=== PATIENT | male | born 1940 | race Caucasian/White ===

== ENCOUNTER 2017-03-19 12:01 | Inpatient (IN) | payer MEDICARE, BC ==
[2017-03-19] MEDS ORDERED: methylPREDNISolone Sodium Succinate 125 MG/2 ML SDV IVPUSH SCH (13:30)
[2017-03-19] MEDS: Piperacillin/Tazobactam/Dext 50 ML IV SCH ×2 (14:00→20:38)
[2017-03-19] MEDS ORDERED: Prochlorperazine 5 MG Tab PO PRN (16:46)
[2017-03-19] MEDS ORDERED: Nitroglycerin 0.4 MG Tab.SL SL PRN (16:46)
[2017-03-19] MEDS ORDERED: Codeine/guaiFENesin 100mg-10 MG/5 ML Syrup 10 ML Cup PO PRN (16:46)
[2017-03-19] MEDS: Albuterol/Ipratropium 3.0-0.5 MG/3 ML Neb Soln NEB SCH ×2 (17:22→22:12)
[2017-03-19] MEDS: Clopidogrel 75 MG Tab PO SCH (17:22)
[2017-03-19] MEDS: Tamsulosin 0.4 MG Cap.ER PO SCH (17:41)
[2017-03-19] MEDS: Budesonide 0.5 MG/2 ML Neb Susp INH SCH (20:38)
[2017-03-19] MEDS: Hydroxychloroquine 200 MG Tab PO SCH (20:38)
[2017-03-19] MEDS: Carboxymethylcellulose Sodium 0.5% Ophth Soln 15 ML Bottle EYEBOTH SCH (20:38)
[2017-03-20] MEDS: Piperacillin/Tazobactam/Dext 50 ML IV SCH ×4 (01:46→19:49)
[2017-03-20] MEDS: Albuterol/Ipratropium 3.0-0.5 MG/3 ML Neb Soln NEB SCH ×4 (06:02→22:56)
[2017-03-20] MEDS: Hydrochlorothiazide 25 MG Tab PO SCH (08:11)
[2017-03-20] MEDS: Multivitamins with Minerals/Iron/Folic Acid/Lycopene Tab PO SCH (08:11)
[2017-03-20] MEDS: Losartan 50 MG Tab PO SCH (08:11)
[2017-03-20] MEDS: predniSONE 10 MG Tab PO SCH (08:12)
[2017-03-20] MEDS: Aspirin 81 MG Tab.EC PO SCH (08:12)
[2017-03-20] MEDS: Metoprolol Succinate 25 MG Tab.ER PO SCH (08:12)
[2017-03-20] MEDS: Carboxymethylcellulose Sodium 0.5% Ophth Soln 15 ML Bottle EYEBOTH SCH ×2 (08:12→20:06)
[2017-03-20] MEDS: Hydroxychloroquine 200 MG Tab PO SCH ×3 (08:12→18:10)
[2017-03-20] MEDS: Budesonide 0.5 MG/2 ML Neb Susp INH SCH ×2 (08:22→19:59)
[2017-03-20] MEDS ORDERED: Codeine/guaiFENesin 100mg-10 MG/5 ML Syrup 10 ML Cup PO PRN (09:09)
[2017-03-20] MEDS: guaiFENesin 600 MG Tab.ER PO SCH ×2 (10:05→20:06)
[2017-03-20] MEDS: Sodium Chloride 0.9% 5 ML Syringe FLUSH PRN ×2 (13:32→16:14)
[2017-03-20] MEDS: [UNRECOGNIZED DRUG - OTHER] PO SCH (13:56)
[2017-03-20] MEDS: Clopidogrel 75 MG Tab PO SCH (18:10)
[2017-03-20] MEDS: Tamsulosin 0.4 MG Cap.ER PO SCH (18:10)
[2017-03-21] MEDS: Piperacillin/Tazobactam/Dext 50 ML IV SCH ×4 (02:23→19:54)
[2017-03-21] MEDS: Albuterol/Ipratropium 3.0-0.5 MG/3 ML Neb Soln NEB SCH ×4 (05:59→22:34)
[2017-03-21] MEDS: Multivitamins with Minerals/Iron/Folic Acid/Lycopene Tab PO SCH (08:21)
[2017-03-21] MEDS: Losartan 50 MG Tab PO SCH (08:21)
[2017-03-21] MEDS: predniSONE 10 MG Tab PO SCH (08:22)
[2017-03-21] MEDS: Hydrochlorothiazide 25 MG Tab PO SCH (08:22)
[2017-03-21] MEDS: Aspirin 81 MG Tab.EC PO SCH (08:22)
[2017-03-21] MEDS: Metoprolol Succinate 25 MG Tab.ER PO SCH (08:22)
[2017-03-21] MEDS: Hydroxychloroquine 200 MG Tab PO SCH ×2 (08:22→18:05)
[2017-03-21] MEDS: Carboxymethylcellulose Sodium 0.5% Ophth Soln 15 ML Bottle EYEBOTH SCH ×2 (08:23→20:10)
[2017-03-21] MEDS: guaiFENesin 600 MG Tab.ER PO SCH ×2 (08:23→20:10)
[2017-03-21] MEDS: Budesonide 0.5 MG/2 ML Neb Susp INH SCH ×2 (08:53→20:00)
--- NOTE | 2017-03-21 11:09 | PN ---
03/21/2017 PATIENT NAME: SANDRA LANCASTER CHIEF COMPLAINT: More of a loose productive cough today. He was given some Mucinex yesterday, however, denies any shortness of breath. No fevers. Vital signs have been stable. BRIEF HISTORY: This 76-year-old gentleman was admitted for a community-acquired pneumonia, pseudomonal grew on the sputum culture. He is a patient of Dr. Hinton, oncologist, and he did see him on approximately 03/14/2017, and did obtain a sputum culture, due to the fact that the patient was having a cough for approximately three weeks prior. He did notify [facility] [place] nurse practitioner, on the results, and he was admitted for IV antibiotics. He has been on Zosyn and doing quite well. The patient does have CLL with elevated WBC which is chronic for him. He does have COPD on Pulmicort inhalers and DuoNeb, doing quite well with that. PHYSICAL EXAMINATION: VITAL SIGNS: Temperature 97, heart rate 68 and regular, blood pressure 133/67, O2 sats are 96% on room air. He is not on home oxygen. 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 The patient does not use any accessory muscles for breathing. Good capillary refill. CARDIOVASCULAR: Regular rate and rhythm. ABDOMEN: Bowel tones are good. LABORATORY DATA: I have viewed the sputum culture results that show pseudomonal with sensitivity to ciprofloxacin along with broad-spectrum Zosyn. He is continued with Zosyn right now. ASSESSMENT AND PLAN: 1. Community-acquired pneumonia, pseudomonal, continue with IV Zosyn for at least 24 more hours. Most likely can be discharged tomorrow on oral ciprofloxacin, continue with his DuoNeb, oxygen as needed, continue with Mucinex, fluids to stay well hydrated, and incentive spirometer. 2. Chronic obstructive pulmonary disease, seems well controlled. He did have a mild exacerbation on admission. Mucinex ordered, he is on Pulmicort inhaler, I did discontinue his systemic steroids, also on DuoNeb p.r.n. 3. Chronic diseases, chronic lymphocytic leukemia (CLL), he is on Leukeran 6 mg daily. Monitor white count. He is being followed closely by net application support specialist/oncologist. 4. Hypertension. He is on Hyzaar, well controlled. He is also on Toprol. 5. Coronary artery disease. He is on dual antiplatelet therapy of aspirin and Plavix, along with Toprol. 6. Hyperlipidemia, he is not on a statin therapy. 7. Rheumatoid arthritis. He is on prednisone and Plaquenil, 10 mg daily of prednisone. He does have increase in his arthritic symptoms, due to his mild current illness, it seems like this is tolerable mainly in his shoulders and small joints. No edema noticed in his hands. OVERALL PLAN: Continue IV Zosyn, potential for discharge tomorrow, we will consider respiratory fluoroquinolones on discharge. /[id number]/MODL
--- NOTE | 2017-03-21 11:44 | PN ---
03/20/2017 PATIENT NAME: SANDRA LANCASTER CHIEF COMPLAINT: Overall feels better, still has ongoing cough. BRIEF HISTORY: This is a 76-year-old gentleman, who does have a history of CLL, who was admitted by Olga Lopez yesterday after he had received a notice by his oncologist regarding a pseudomonal sputum. He had been seen by Dr. Hinton on 03/14. At that time, he had a negative chest x-ray. At that time, he was also started on doxycycline due to a productive cough he had had about 3 weeks prior to this, however, the patient's sputum culture did come back with pseudomonal, so it was suggested that he receive IV antibiotics. He was admitted yesterday. MICROBIOLOGY: The patient's sputum culture does show moderate gram-positive cocci in pairs and chains with a few gram-negative bacillus, sensitive to respiratory fluoroquinolones. continue with Zosyn. IMAGING: Chest x-ray was negative on 03/14, do not have the image nor the report from admission x-ray. PHYSICAL EXAMINATION: VITAL SIGNS: Temperature, afebrile 98.1, blood pressure 148/74, heart rate 70, O2 saturation 96%, this is on room air. GENERAL: The patient is lucid, calm, no respiratory distress. CV: Regular rate and rhythm. No murmur. LUNGS: Does have some rhonchus in right lower lobe, mildly adventitious to the left upper lobe. ABDOMEN: Bowel sounds are normoactive, nontender. EXTREMITIES: Good radial pulses. The patient has no edema. LABORATORY DATA: CBC dated 03/19, 125,000, RBCs 2.94, hemoglobin 10.1 with hematocrit of 30.0, RDW approximately 15, differential neutrophil percent 10%. Glucose 92, sodium 135, potassium 4.2, BUN 23, creatinine 1.18 with a BUN and creatinine ratio of approximately 20:1. Calcium is normal at 9.1. IMPRESSION AND PLAN: 1. Pneumonia, culture demonstrate pseudomonal. We will continue on IV Zosyn. Will likely be discharged on respiratory fluoroquinolone. He is well hydrated, oxygenating well, incentive spirometer encouraged. 2. Chronic obstructive pulmonary disease, mild exacerbation. Continue with Pulmicort inhaler and DuoNebs. 3. He is on 10 mg of prednisone due to his rheumatoid arthritis. He had received Solu-Medrol x1 yesterday. I will not continue with that. OTHER CHRONIC PROBLEMS: 1. Hypertension, controlled on Hyzaar. 2. Coronary artery disease, on Toprol, Plavix, and aspirin. 3. Hyperlipidemia. 4. Rheumatoid arthritis, he is on Plaquenil along with prednisone. 5. Chronic lymphocytic leukemia (CLL) diagnosed in 2013. Continue treatment with chlorambucil 6 mg p.o. daily. Monitor weekly CBCs. He is being followed by his oncologist every month. OVERALL PLAN: Continue coverage with broad-spectrum IV Zosyn for pseudomonal, most likely could be discharged on a p.o. ciprofloxacin at some point with the patient's CLL, he could have a clinical deterioration quite rapidly, so he is requiring IV treatment for this and ongoing monitoring, and inpatient ongoing hospital stay. /[id number]/MODL MTDD
[2017-03-21] MEDS: Sodium Chloride 0.9% 5 ML Syringe FLUSH PRN (13:06)
[2017-03-21] MEDS: [UNRECOGNIZED DRUG - OTHER] PO SCH (14:38)
[2017-03-21] MEDS: Tamsulosin 0.4 MG Cap.ER PO SCH (18:04)
[2017-03-21] MEDS: Clopidogrel 75 MG Tab PO SCH (18:05)
[2017-03-21] MEDS: Loperamide 2 MG Cap PO PRN (18:05)
[2017-03-22] MEDS: Loperamide 2 MG Cap PO PRN ×4 (01:56→22:18)
[2017-03-22] MEDS: Piperacillin/Tazobactam/Dext 50 ML IV SCH ×4 (01:56→20:00)
[2017-03-22] MEDS: Albuterol/Ipratropium 3.0-0.5 MG/3 ML Neb Soln NEB SCH ×4 (05:51→22:11)
[2017-03-22] MEDS: Multivitamins with Minerals/Iron/Folic Acid/Lycopene Tab PO SCH (07:49)
[2017-03-22] MEDS: Hydroxychloroquine 200 MG Tab PO SCH ×2 (07:51→17:26)
[2017-03-22] MEDS: Hydrochlorothiazide 25 MG Tab PO SCH (07:51)
[2017-03-22] MEDS: Losartan 50 MG Tab PO SCH (07:52)
[2017-03-22] MEDS: predniSONE 10 MG Tab PO SCH (07:53)
[2017-03-22] MEDS: Metoprolol Succinate 25 MG Tab.ER PO SCH (07:53)
[2017-03-22] MEDS: Carboxymethylcellulose Sodium 0.5% Ophth Soln 15 ML Bottle EYEBOTH SCH ×2 (08:41→20:00)
[2017-03-22] MEDS: Budesonide 0.5 MG/2 ML Neb Susp INH SCH ×2 (08:41→20:02)
[2017-03-22] MEDS: Aspirin 81 MG Tab.EC PO SCH (08:42)
[2017-03-22] MEDS: guaiFENesin 600 MG Tab.ER PO SCH ×2 (08:42→20:00)
--- NOTE | 2017-03-22 12:11 | PN ---
03/22/2017 PATIENT NAME: SANDRA LANCASTER BRIEF HISTORY: This 76-year-old gentleman was admitted for community-acquired pneumonia, pseudomonal growth on a sputum culture. He is a patient Dr. Hinton oncologist/job placement officer, had seen him for about a three-week cough, it was routine appointment, however, the patient had been having a cough for several weeks, had put him on doxycycline, however, he had treatment failure with this. 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 He will have to remain here for ongoing IV coverage of hypercellular/tazobactam. PHYSICAL EXAMINATION: VITAL SIGNS: Temperature 97.7, blood pressure 120/64, heart rate 78, O2 sats 98% on room air, respiratory rate 20. GENERAL: The patient is alert and oriented. LUNGS: He does have some rhonchus in his right lower lobe, seems to be improving. Does have an ongoing cough. He is oxygenating well. He has normal pulmonary excursion. CARDIOVASCULAR: Regular rate and rhythm. No murmur. GI: Good bowel tones. Ongoing diarrhea, C diff is negative on labs. LABS: White count of 127,000, which is expected due to his CLL. Sodium 133, potassium 3.5, creatinine is 1.42 with estimated creatinine clearance drug dosing of 50. ASSESSMENT AND PLAN: 1. Community-acquired pneumonia, pseudomonal due to type 1 hypersensitivity reactions to many agents. He will have to continue with IV Zosyn, minimal of 5-7 days with this. Continue with Mucinex, well hydration with fluids, incentive spirometer, respiratory isolation with masks. 2. Chronic obstructive pulmonary disease, seems well controlled. Mucinex can continue for pulmonary secretions. We will continue with Brittaney Gonzalez. 3. Chronic lymphocytic leukemia. Continue with Leukeran 6 mg daily. Monitor white count. 4. Hypertension, well controlled on Hyzaar. 5. Coronary artery disease, on dual antiplatelet therapy of aspirin and Plavix. 6. Hyperlipidemia. He is on statin therapy. 7. Rheumatoid arthritis. Continue with Plaquenil and prednisone. OVERALL PLAN: Continue with IV Zosyn q.6 hours. We will continue to monitor the patient for any ongoing sequela. /[id number]/MODL
[2017-03-22] MEDS: B.Bifidum/B.Longum/L.Acidophilus/L.Rhamnosus (Probiotic) Cap PO SCH ×2 (12:43→17:26)
[2017-03-22] MEDS: [UNRECOGNIZED DRUG - OTHER] PO SCH (12:43)
[2017-03-22] MEDS: Sodium Chloride 0.9% 100 ML IV SCH (14:27)
[2017-03-22] MEDS: Tamsulosin 0.4 MG Cap.ER PO SCH (17:26)
[2017-03-22] MEDS: Clopidogrel 75 MG Tab PO SCH (17:26)
[2017-03-23] MEDS: Piperacillin/Tazobactam/Dext 50 ML IV SCH ×4 (01:57→20:17)
[2017-03-23] MEDS: Albuterol/Ipratropium 3.0-0.5 MG/3 ML Neb Soln NEB SCH ×4 (05:58→22:34)
[2017-03-23] MEDS: Hydrochlorothiazide 25 MG Tab PO SCH (07:41)
[2017-03-23] MEDS: Hydroxychloroquine 200 MG Tab PO SCH ×2 (07:41→17:36)
[2017-03-23] MEDS: Multivitamins with Minerals/Iron/Folic Acid/Lycopene Tab PO SCH (07:41)
[2017-03-23] MEDS: Losartan 50 MG Tab PO SCH (07:42)
[2017-03-23] MEDS: predniSONE 10 MG Tab PO SCH (07:42)
[2017-03-23] MEDS: Metoprolol Succinate 25 MG Tab.ER PO SCH (07:42)
--- NOTE | 2017-03-23 07:54 | DISCH ---
ADDENDUM patient was discharged March 24, 2017 FINAL DIAGNOSES: Pneumonia, community-acquired, pseudomonal etiology, much improved clinically. OTHER FINAL DIAGNOSES: Chronic medical conditions; chronic obstructive pulmonary disease, mild exacerbations, much improved; chronic lymphocytic leukemia (CLL), continue with Leukeran 6 mg daily; hypertension, well controlled; coronary artery disease, on dual antiplatelet therapy; hyperlipidemia, is on statin therapy; rheumatoid arthritis with mild exacerbation on prednisone and Plaquenil. BRIEF HISTORY: This very pleasant 76-year-old gentleman was admitted for community-acquired pneumonia. He had an appoint with his oncologist for his CLL. At that time, he had been having a cough for 3 weeks. Sputum culture was obtained. He returned 2 to 3 days later with a pseudomonal bacterial organism and he was subsequently admitted to the hospital for IV broad-spectrum antibiotics, definitive therapy based on sensitivity reports. HOSPITAL COURSE: The patient did very well throughout the hospital course. He received IV Zosyn throughout his course here. He did have some ongoing concomitant diarrhea, which was treated with Imodium. He never became febrile, qSOFA score was zero. Blood pressure normal, normal temperature. O2 sat 98%. He was well hydrated. He did have a mild COPD exacerbation, which did not require any supplemental oxygen. He continued on his DuoNeb and all his breathing medications. He was treated with probiotics for diarrhea. C. difficile was negative LABS: He did have a white count of 127,000.8 on discharge, however, due to his CLL, this was expected. Sodium 133, BUN 22, creatinine 1.42, total protein 5.9. Microbiology Report: He did have a negative C. difficile. He never became hemodynamically unstable. I did treat him with some Mucinex. He was well hydrated, continued on his prednisone and his Plaquenil. PHYSICAL EXAMINATION: On discharge: GENERAL: The patient is alert and oriented. LUNGS: Had some mild rhonchus in his right lower base. No decrease in excursion. CV: Regular rate and rhythm. He had no edema. GI: He did have some ongoing diarrhea likely due to antibiotics. C. difficile was negative. DISPOSITION: The patient strongly desired to be released from the hospital. I recommended 7-10 day course since he has significant allergy Type I hypersensitivity allergies requiring IV antibiotics. The patient was educated regarding this however he desired to go home. CONSULTATION. I consulted with his oncologist Dr. Lara's, he recommended patient stay at minimal of 5 days for IV antibiotics MEDICATION ADJUSTMENTS: 1. Probiotics, the patient's choice. 2. Imodium as directed for ongoing diarrhea. DISPOSITION: The patient will be discharged home. He will follow up next week. He is to monitor for any dizziness, diaphoresis, or any fever, worsening cough, or any weakness, or increase in shortness of breath. He uses incentive spirometer as directed. MEDICAL DECISION MAKIN minutes was spent on this discharge planning and process and pharmacy prescription consultation. /[id number]/MODL ADDENDUM patient was discharged March 24, 2017 [place]
[2017-03-23] MEDS: Aspirin 81 MG Tab.EC PO SCH (08:24)
[2017-03-23] MEDS: guaiFENesin 600 MG Tab.ER PO SCH ×2 (08:24→20:17)
[2017-03-23] MEDS: Budesonide 0.5 MG/2 ML Neb Susp INH SCH ×2 (08:25→20:17)
[2017-03-23] MEDS: Carboxymethylcellulose Sodium 0.5% Ophth Soln 15 ML Bottle EYEBOTH SCH ×2 (08:27→20:18)
--- NOTE | 2017-03-23 09:39 | PN ---
03/23/2017 PATIENT NAME: SANDRA LANCASTER CHIEF COMPLAINT: Feels better, less of a cough, much less of any mucous production, no wheezing, had a good night. HISTORY: This 76-year-old gentleman was admitted for a pseudomonal pneumonia, which grew out on a sputum culture, sensitive to Zosyn and ciprofloxacin, however, patient has type 1 hypersensitivity allergies to respiratory fluoroquinolones among others. He was recently seen by an poker manager and he was removed off aspirin allergies, also he can take first generation cephalosporin, however, he has been willing to stay here for IV Zosyn. He has refused home therapy fusion. He does have CLL and is closely followed by parish worker/oncologist. The patient has done well since hospitalization. PHYSICAL EXAMINATION: VITAL SIGNS: Blood pressure 142/82; heart rate 86 and regular; temperature 98; O2 sats of 93%, this is on room air. GENERAL: The patient is alert and oriented, he is calm. He was doing a respiratory breathing DuoNeb on rounds. LUNGS: Very much improved, much less rhonchus, oxygenating well. Good vascular excursion. CARDIOVASCULAR: Regular rate and rhythm. LABS: On 03/22, white count 127,000, which is expected for CLL; hemoglobin 10.5; hematocrit 31.3 with a slightly elevated RDW indicating anisocytosis. Sodium 133, BUN 22, creatinine 1.42. Liver tests are normal. ASSESSMENT AND PLAN: 1. Pseudomonal community-acquired pneumonia. The patient will require to IV Zosyn for at least 24-48 more hours. Likely, he could be discharged tomorrow afternoon. We will continue with Mucinex. He seems well hydrated. 2. Chronic obstructive pulmonary disease with mild exacerbation, this seems to have resolved, however, we will continue on his Pulmicort and DuoNebs. He is oxygenating well. He is well hydrated. 3. Chronic lymphocytic leukemia. He is getting Leukeran 6 mg daily. He will be monitored closely with his oncologist. There are treatment plans for him if his white count drops below 50,000. 4. Hypertension, well controlled on high Hyzaar. 5. Hyperlipidemia. 6. Rheumatoid arthritis, which seems to have improved. He is on long-term steroids along with Plaquenil. OVERALL PLAN: Continue with IV Zosyn. He is doing well. Continue to monitor for any ongoing problems with him including fever and dizziness and low blood pressure. Likely, he can be discharged tomorrow afternoon after his second dose of IV Zosyn. We will see how he is clinically at that time. /[id number]/MODL MTDD
[2017-03-23] MEDS: B.Bifidum/B.Longum/L.Acidophilus/L.Rhamnosus (Probiotic) Cap PO SCH ×2 (11:28→17:36)
[2017-03-23] MEDS: [UNRECOGNIZED DRUG - OTHER] PO SCH (13:24)
[2017-03-23] MEDS: Sodium Chloride 0.9% 100 ML IV SCH (13:57)
[2017-03-23] MEDS: Tamsulosin 0.4 MG Cap.ER PO SCH (17:36)
[2017-03-23] MEDS: Clopidogrel 75 MG Tab PO SCH (17:36)
[2017-03-23] MEDS: Loperamide 2 MG Cap PO PRN (20:17)
[2017-03-24] MEDS: Piperacillin/Tazobactam/Dext 50 ML IV SCH ×3 (02:10→13:18)
[2017-03-24] MEDS: Albuterol/Ipratropium 3.0-0.5 MG/3 ML Neb Soln NEB SCH ×2 (05:40→11:37)
[2017-03-24 06:29] VITALS: BP 141/72
[2017-03-24] MEDS: Hydrochlorothiazide 25 MG Tab PO SCH (08:46)
[2017-03-24] MEDS: Losartan 50 MG Tab PO SCH (08:46)
[2017-03-24] MEDS: Multivitamins with Minerals/Iron/Folic Acid/Lycopene Tab PO SCH (08:46)
[2017-03-24] MEDS: Hydroxychloroquine 200 MG Tab PO SCH (08:47)
[2017-03-24] MEDS: predniSONE 10 MG Tab PO SCH (08:47)
[2017-03-24] MEDS: Aspirin 81 MG Tab.EC PO SCH (08:48)
[2017-03-24] MEDS: Metoprolol Succinate 25 MG Tab.ER PO SCH (08:48)
[2017-03-24] MEDS: guaiFENesin 600 MG Tab.ER PO SCH (08:49)
[2017-03-24] MEDS: Carboxymethylcellulose Sodium 0.5% Ophth Soln 15 ML Bottle EYEBOTH SCH (08:54)
[2017-03-24] MEDS: Budesonide 0.5 MG/2 ML Neb Susp INH SCH (08:55)
[2017-03-24] MEDS: B.Bifidum/B.Longum/L.Acidophilus/L.Rhamnosus (Probiotic) Cap PO SCH (12:01)
[2017-03-24] MEDS: [UNRECOGNIZED DRUG - OTHER] PO SCH (12:02)
[2017-03-24] MEDS: Sodium Chloride 0.9% 100 ML IV SCH (13:20)
== END 2017-03-24 14:15 | disposition home or self-care (01) | DRG 178 ==
LOC: KA.MS 12:01
PROVIDERS: ADMIT Nurse Practitioner Family; ATTEND Nurse Practitioner Family
DX: J15.1 Pneumonia due to Pseudomonas (principal); J44.1 Chronic obstructive pulmonary disease with (acute) exacerbation; C91.10 Chronic lymphocytic leukemia of B-cell type not having achieved remission; I10 Essential (primary) hypertension; I25.10 Atherosclerotic heart disease of native coronary artery without angina pectoris; E78.5 Hyperlipidemia, unspecified; M06.9 Rheumatoid arthritis, unspecified; Z79.899 Other long term (current) drug therapy; Z88.8 Allergy status to other drugs, medicaments and biological substances; Z95.5 Presence of coronary angioplasty implant and graft; Z87.891 Personal history of nicotine dependence
CPT/HCPCS: 36415; 80053; 85025; 87324; A9270-GY; J2543; J2930; J7030; J7050

== ENCOUNTER 2017-09-11 09:45 | Day surgery (SDC) | payer MEDICARE, BC ==
[~2017-09-11 09:45] MED LIST: Gatifloxacin 0.5% Ophth Soln 2.5 ML Bot EYERT SCH; Lactated Ringers 1,000 ML IV SCH; Sodium Chloride 0.9% 5 ML Syringe FLUSH PRN
[2017-09-11] MEDS: Cyclopentolate 1% Opth Soln 2 ML Bottle EYERT SCH ×3 (10:19→10:49)
[2017-09-11] MEDS: Phenylephrine 10% Ophth Soln 5 ML Bot EYERT SCH ×3 (10:29→11:03)
[2017-09-11] MEDS ORDERED: Water For Irrigation,Sterile 1,500 ML Container IRR ONE (11:32)
[2017-09-11] MEDS ORDERED: Balanced Salt Solution Ophth Irrig 15 ML Bottle EYERT ONE ×2 (11:32)
[2017-09-11] MEDS ORDERED: EPINEPHrine 1 MG/ML SDV ONE (11:33)
[2017-09-11] MEDS ORDERED: Balanced Salt Solution Plus Ophth Irrig 500 ML Bottle IOCULAR ONE (11:33)
[2017-09-11] MEDS ORDERED: Carbachol 0.01% Intraocular 1.5 ML Vial EYERT ONE (11:33)
[2017-09-11] MEDS ORDERED: Dexamethasone/Neomycin/Polymyxin B Ophth Oint 3.5 GM Tube EYERT ONE (11:34)
[2017-09-11] MEDS ORDERED: Lidocaine 2% with EPINEPHrine 1:100,000 20 ML MDV INJECT ONE (11:34)
[2017-09-11] MEDS ORDERED: Tetracaine HCl/PF 0.5% 4 ML Bottle EYEBOTH ONE (11:35)
[2017-09-11] MEDS ORDERED: Hyaluronate Sodium 1% 0.85 ML Syringe IOCULAR ONE (11:35)
[2017-09-11] MEDS ORDERED: Lidocaine 1% 10 ML MDV INJECT ONE (11:35)
[2017-09-11 12:02] VITALS: BP 197/61
--- NOTE | 2017-09-12 08:32 | OR ---
DATE OF SURGERY: 09/11/2017 SURGEON: Brian Ascencio MD PREOPERATIVE DIAGNOSIS: Cataract, right eye. POSTOPERATIVE DIAGNOSIS: Cataract, right eye. OPERATION PERFORMED: Phacoemulsification with posterior chamber lens insertion, right eye. HISTORY: Mr. Burnett notes that he is having more and more difficulty when he is out and about with constant glare of the right eye. 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 The vision is 20/50-2 for the right eye. FINDINGS: The patient was taken to the operating room where appropriate anesthesia, sedation and monitoring were provided. A retrobulbar block was given on the right side. The eye was massaged and was found to be appropriately soft. The eye and eyelids were then prepped and draped in the usual sterile manner. A lid speculum was placed. A micro sharp blade was used to enter the anterior chamber inside the limbus superior-temporally. Xylocaine was irrigated into the eye at this site. Healon was irrigated into the eye through this site. Then using a 2.85 mm corneal blade an entry was made into the anterior chamber just inside the limbus temporally. Healon was again irrigated into the eye. Then using a cystitome, the anterior capsulorrhexis was created. The lens nucleus was hydrodissected using a 27 gauge cannula and balanced salt solution. The phacoemulsification unit was introduced through the temporal site and the Stephen spatula through the superior temporal site. In so doing, the lens nucleus was phacoemulsified. The cortical fragments of the lens were removed using the irrigation aspiration unit. The posterior capsule was polished. Healon was irrigated into the eye. The posterior chamber lens was inserted and rotated into position inside the capsular bag. The Healon was irrigated out of the eye. Miostat was irrigated into the eye and the pupil rounded nicely. Two interrupted 10-0 Nylon sutures were placed through the temporal corneal incision site. Balanced salt solution was irrigated into the eye. The wound was tested and found to be tight. Maxitrol ointment was placed into the patient's right eye. The eyelids were closed and an eye patch and lomas shield were placed. The patient left the operating room in good condition. /[id number]/MODL
== END 2017-09-11 12:37 | disposition home or self-care (01) ==
LOC: KA.SDS 09:45
PROVIDERS: ATTEND Ophthalmology
DX: H25.811 Combined forms of age-related cataract, right eye (principal); I12.9 Hypertensive chronic kidney disease with stage 1 through stage 4 chronic kidney disease, or unspecified chronic kidney disease; N18.3 Chronic kidney disease, stage 3 (moderate); I25.10 Atherosclerotic heart disease of native coronary artery without angina pectoris; D80.1 Nonfamilial hypogammaglobulinemia; N40.1 Benign prostatic hyperplasia with lower urinary tract symptoms; E78.5 Hyperlipidemia, unspecified; J44.9 Chronic obstructive pulmonary disease, unspecified; C91.10 Chronic lymphocytic leukemia of B-cell type not having achieved remission; Z88.1 Allergy status to other antibiotic agents; Z88.8 Allergy status to other drugs, medicaments and biological substances; Z79.82 Long term (current) use of aspirin; Z79.899 Other long term (current) drug therapy
CPT/HCPCS: 36415; 66984; 84132; A9270; C1780; J0171; J7120; 00142

== ENCOUNTER 2017-11-20 08:55 | Day surgery (SDC) | payer MEDICARE, BC ==
[~2017-11-20 08:55] MED LIST changes: +Cyclopentolate 1% Opth Soln 2 ML Bottle EYELF SCH; -Gatifloxacin 0.5% Ophth Soln 2.5 ML Bot EYERT SCH; +Phenylephrine 10% Ophth Soln 5 ML Bot EYELF SCH; +Tobramycin 0.3% Ophth Drops 5 ML Bottle EYELF SCH
[2017-11-20] MEDS ORDERED: Tobramycin 0.3% Ophth Drops 5 ML Bottle EYELF SCH ×2 (09:00→09:45)
[2017-11-20] MEDS: Phenylephrine 10% Ophth Soln 5 ML Bot EYELF SCH ×3 (09:12→09:43)
[2017-11-20] MEDS: Cyclopentolate 1% Opth Soln 2 ML Bottle EYELF SCH ×3 (09:17→09:48)
[2017-11-20] MEDS ORDERED: Sodium Chloride 0.9% 5 ML Syringe FLUSH PRN (09:45)
[2017-11-20] MEDS ORDERED: Lactated Ringers 1,000 ML IV SCH (09:45)
[2017-11-20] MEDS ORDERED: Phenylephrine 10% Ophth Soln 5 ML Bot EYELF SCH (10:15)
[2017-11-20] MEDS ORDERED: Cyclopentolate 1% Opth Soln 2 ML Bottle EYELF SCH (10:15)
[2017-11-20] MEDS ORDERED: Balanced Salt Solution Plus Ophth Irrig 500 ML Bottle IOCULAR ONE (11:01)
[2017-11-20] MEDS ORDERED: Balanced Salt Solution Ophth Irrig 15 ML Bottle EYELF ONE (11:01)
[2017-11-20] MEDS ORDERED: Water For Irrigation,Sterile 1,500 ML Container IRR ONE (11:01)
[2017-11-20] MEDS ORDERED: Carbachol 0.01% Intraocular 1.5 ML Vial EYELF ONE (11:02)
[2017-11-20] MEDS ORDERED: EPINEPHrine 1 MG/ML SDV ONE (11:02)
[2017-11-20] MEDS ORDERED: Dexamethasone/Neomycin/Polymyxin B Ophth Oint 3.5 GM Tube EYELF ONE (11:02)
[2017-11-20] MEDS ORDERED: Lidocaine 2% with EPINEPHrine 1:100,000 20 ML MDV INJECT ONE (11:03)
[2017-11-20] MEDS ORDERED: Lidocaine 1% 10 ML MDV INJECT ONE (11:03)
[2017-11-20] MEDS ORDERED: Hyaluronate Sodium 1% 0.85 ML Syringe IOCULAR ONE ×2 (11:03)
[2017-11-20] MEDS ORDERED: Tetracaine HCl/PF 0.5% 4 ML Bottle EYEBOTH ONE (11:03)
[2017-11-20 11:57] VITALS: BP 180/72
--- NOTE | 2017-11-20 18:45 | OR ---
DATE OF SURGERY: 11/20/2017 SURGEON: Brian Ascencio MD PREOPERATIVE DIAGNOSIS: Cataract, left eye. POSTOPERATIVE DIAGNOSIS: Cataract, left eye. OPERATION PERFORMED: Phacoemulsification with posterior chamber lens insertion, left eye. HISTORY: The patient presents with constant glare difficulties with the left eye. His current vision for the left eye is 20/50-1. By slit lamp examination, this eye has a 2 to 3+ nuclear sclerosis of the lens; a 2+ cortical change of the lens; and a 1+ posterior subcapsular cataract change exists as well. 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 FINDINGS: The patient was taken to the operating room where appropriate anesthesia, sedation and monitoring were provided. A retrobulbar block was given on the left side. The eye was massaged and was found to be appropriately soft. The eye and eyelids were then prepped and draped in the usual sterile manner. A lid speculum was placed. A micro sharp blade was used to enter the anterior chamber inside the limbus inferior-temporally. Xylocaine was irrigated into the eye at this site. Healon was irrigated into the eye through this site. Then using a 2.85 mm corneal blade an entry was made into the anterior chamber just inside the limbus temporally. Healon was again irrigated into the eye. Then using a cystitome, the anterior capsulorrhexis was created. The lens nucleus was hydrodissected using a 27 gauge cannula and balanced salt solution. The phacoemulsification unit was introduced through the temporal site and the Stephen spatula through the inferior temporal site. In so doing, the lens nucleus was phacoemulsified. The cortical fragments of the lens were removed using the irrigation aspiration unit. The posterior capsule was polished. Healon was irrigated into the eye. The posterior chamber lens was inserted and rotated into position inside the capsular bag. The Healon was irrigated out of the eye. Miostat was irrigated into the eye and the pupil rounded nicely. A single interrupted 10-0 Nylon suture was placed through the temporal corneal incision site. Balanced salt solution was irrigated into the eye. The wound was tested and found to be tight. Maxitrol ointment was placed into the patient's left eye. The eyelids were closed and an eye patch and lomas shield were placed. The patient left the operating room in good condition. /[id number]/MODL
== END 2017-11-20 12:05 | disposition home or self-care (01) ==
LOC: KA.SDS 08:55
PROVIDERS: ATTEND Ophthalmology
DX: H25.812 Combined forms of age-related cataract, left eye (principal); I12.9 Hypertensive chronic kidney disease with stage 1 through stage 4 chronic kidney disease, or unspecified chronic kidney disease; N18.3 Chronic kidney disease, stage 3 (moderate); E78.5 Hyperlipidemia, unspecified; J44.9 Chronic obstructive pulmonary disease, unspecified; I25.10 Atherosclerotic heart disease of native coronary artery without angina pectoris; D63.1 Anemia in chronic kidney disease; Z79.899 Other long term (current) drug therapy; Z79.82 Long term (current) use of aspirin; Z88.1 Allergy status to other antibiotic agents; Z88.8 Allergy status to other drugs, medicaments and biological substances; Z91.041 Radiographic dye allergy status; Z90.49 Acquired absence of other specified parts of digestive tract; Z87.891 Personal history of nicotine dependence
CPT/HCPCS: 66984; A9270; J0171; J7120

== ENCOUNTER 2018-11-22 15:20 | Inpatient (IN) | payer MEDICARE, BC ==
[2018-11-22] MEDS ORDERED: Ondansetron 4 MG/2 ML SDV IVPUSH PRN (16:19)
[2018-11-22] MEDS ORDERED: Sodium Chloride 0.9% 500 ML IV ONE (16:30)
[2018-11-22] MEDS: Sodium Chloride 0.9% 10 ML Syringe FLUSH PRN (16:46)
[2018-11-22] MEDS ORDERED: Diatrizoate Meglumine/Diatrizoate Sodium 37% 30 ML Bottle PO ONE (17:16)
[2018-11-22] MEDS ORDERED: Calcium Carbonate 500 MG Tab.Chew PO PRN (18:18)
[2018-11-22] MEDS ORDERED: Nitroglycerin 0.4 MG Tab.SL SL PRN (18:18)
[2018-11-22] MEDS ORDERED: Albuterol/Ipratropium 3.0-0.5 MG/3 ML Neb Soln NEB PRN (18:18)
[2018-11-22] MEDS ORDERED: Albuterol 0.083% 2.5 MG/3 ML Neb Soln INH PRN (18:18)
--- NOTE | 2018-11-22 18:27 | CT ---
[id number] CT/CT Abdomen Pelvis WO IV EXAM: CT Abdomen Pelvis WO IV CLINICAL DATA: ABDOMINAL PAIN. COMPARISON STUDY: May 2014 FINDINGS: Hypodensities in the liver, unchanged from the prior examination. No biliary ductal dilation. Gallbladder is unremarkable. Spleen, adrenal glands, and pancreas are unremarkable. Punctate nonobstructing right renal calculus. Numerous renal sinus and cortical renal cysts, similar to the prior examination. Focal area of wall thickening adjacent numerous diverticula in the left lower quadrant, involving the sigmoid segment of the colon. There is moderate amount of pericolonic reactive change. Findings are consistent with acute diverticulitis. No abscess or pneumoperitoneum. No small bowel obstruction or inflammation. Umbilical hernia containing a loop of unobstructed small bowel. There is some stranding in the subcutaneous soft tissues adjacent to the herniation, with edema in the hernia sac. Correlate for signs of incarceration. Sliding-type hiatus hernia. IMPRESSION: Acute uncomplicated sigmoid diverticulitis. Bowel containing umbilical hernia with edema. Correlate for signs of incarceration. Lucien Heredia MD 11/22/18 [id number] Thank you for allowing us to participate in the care of your patient.
[2018-11-22] MEDS ORDERED: Aluminum Hydroxide/Magnesium Hydroxide/Simethicone Susp 30 ML Cup PO PRN (18:49)
[2018-11-22] MEDS ORDERED: Acetaminophen 500 MG Tab PO PRN (19:23)
[2018-11-22] MEDS ORDERED: Morphine 2 MG/ML Syringe IVPUSH PRN (19:23)
[2018-11-22] MEDS: Sodium Chloride 0.9% 1,000 ML IV SCH (19:56)
[2018-11-22] MEDS: Piperacillin/Tazobactam/Dext 50 ML IV SCH (20:16)
[2018-11-22] MEDS: Fluticasone Propionate Nasal Spray 16 GM Bottle NASBOTH SCH (20:24)
[2018-11-22] MEDS: Potassium Chloride 20 MEQ Tab.ER PO SCH (20:25)
[2018-11-22] MEDS: Carboxymethylcellulose Sodium 0.5% Ophth Soln 15 ML Bottle EYEBOTH SCH (20:25)
[2018-11-23] MEDS: Piperacillin/Tazobactam/Dext 50 ML IV SCH ×4 (01:56→20:01)
[2018-11-23] MEDS: predniSONE 1 MG Tab PO SCH (08:17)
[2018-11-23] MEDS: Hydroxychloroquine 200 MG Tab PO SCH ×2 (08:18→17:55)
[2018-11-23] MEDS: Metoprolol Succinate 25 MG Tab.ER PO SCH (08:19)
[2018-11-23 08:34] LABS: ANION GAP 11.3 mmol/L (5-15)
[2018-11-23] MEDS: Potassium Chloride 20 MEQ Tab.ER PO SCH ×2 (10:04→20:04)
[2018-11-23] MEDS: Carboxymethylcellulose Sodium 0.5% Ophth Soln 15 ML Bottle EYEBOTH SCH ×2 (10:09→20:04)
[2018-11-23] MEDS: VILANTEROL TR IH SCH (10:10)
[2018-11-23] MEDS: Fluticasone Propionate Nasal Spray 16 GM Bottle NASBOTH SCH ×2 (10:10→20:04)
[2018-11-23] MEDS: UMECLIDINIUM BRM IH SCH (10:10)
[2018-11-23] MEDS: Sodium Chloride 0.9% 10 ML Syringe FLUSH PRN (10:14)
--- NOTE | 2018-11-23 10:59 | PCM.PN ---
- General Info Date of Service: 11/23/18 Functional Status: Reports: Pain Controlled, Tolerating Diet, Ambulating, Urinating. Denies: New Symptoms - Review of Systems General: Reports: Weakness, Fatigue, Malaise. Denies: Fever, Chills HEENT: Denies: Headaches Pulmonary: Denies: Shortness of Breath Cardiovascular: Reports: Edema. Denies: Chest Pain Gastrointestinal: Denies: Abdominal Pain, Decreased Appetite, Diarrhea, Nausea, Vomiting Genitourinary: Reports: No Symptoms Neurological: Denies: Dizziness, Headache Psychiatric: Reports: No Symptoms - Patient Data Vitals - Most Recent: Last Vital Signs Temp 98.5 F 11/23/18 06:41 Pulse 65 11/23/18 08:19 Resp 20 11/23/18 06:41 BP 125/59 L 11/23/18 08:19 Pulse Ox 94 L 11/23/18 06:41 Weight - Most Recent: 229 lb 3.2 oz I&O - Last 24 Hours: Intake & Output 11/22/18 11/23/18 11/23/18 22:59 06:59 14:59 Intake Total 350 300 Output Total 100 250 Balance 250 50 Lab Results Last 24 Hours: Laboratory Results - last 24 hr 11/22/18 11/23/18 11/23/18 Range/Units 17:50 07:45 07:45 WBC 2.06 L (5.00-10.00) 10^3/uL RBC 2.95 L (4.50-6.00) 10^6/uL Hgb 9.6 L (13.0-17.0) g/dL Hct 27.6 L (40.0-52.0) % MCV 93.6 H (82.0-92.0) fL MCH 32.5 H (27.0-31.0) pg MCHC 34.8 (32.0-36.0) g/dL RDW 12.5 (11.5-14.5) % Plt Count 126 L (150-400) 10^3/uL MPV 11.1 H (7.4-10.4) fL Add Manual Diff Yes Neutrophils % (Manual) 12 L (50-70) % Band Neutrophils % 9 (4-12) % Lymphocytes % (Manual) 29 (20-40) % Atypical Lymphs % 10 Monocytes % (Manual) 33 H (2-8) % Eosinophils % (Manual) 7 H (1-3) % Basophils % (Manual) 0 (0-1) % Absolute Seg Neuts 0.25 Band Neutrophils # 0.19 Lymphocytes # (Manual) 0.80 Monocytes # (Manual) 0.68 Eosinophils # (Manual) 0.14 Abnormal Lymphocytes Few Sodium 131 L (136-145) mmol/L Potassium 4.0 (3.3-5.3) mmol/L Chloride 96 L (98-115) mmol/L Carbon Dioxide 27.7 (21.0-32.0) mmol/L Anion Gap 11.3 (5-15) mmol/L BUN 32 H (6-25) mg/dL Creatinine 1.76 H (0.51-1.17) mg/dL Est Cr Clr Drug Dosing 39.57 mL/min Estimated GFR (MDRD) 38 mL/min Glucose 80 (75 - 99) mg/dL Calcium 8.1 L (8.7-10.3) mg/dL Specimen Type Urinvoid Urine Color Yellow (YELLOW) Urine Appearance Clear (CLEAR) Urine pH 5.5 (5.0-9.0) Ur Specific [place] 1.020 (1.005-1.030) Urine Protein 100 H (NEGATIVE) mg/dL Urine Glucose (UA) Negative (NEGATIVE) mg/dL Urine Ketones Negative (NEGATIVE) mg/dL Urine Occult Blood Small H (NEGATIVE) Urine Nitrite Negative (NEGATIVE) Urine Bilirubin Negative (NEGATIVE) Urine Urobilinogen 0.2 (0.2-1.0) E.U./dL Ur Leukocyte Esterase Negative (NEGATIVE) Urine RBC 0-5 (0-5) /HPF Urine WBC 0-5 (0-5) /HPF Ur Epithelial Cells Few /LPF Urine Bacteria Rare (NONE TO FEW) /HPF Med Orders - Current: Current Medications Acetaminophen (Tylenol Extra Strength) 1,000 mg PO Q6H PRN PRN Reason: mild pain Al Hydroxide/Mg Hydroxide (Mag-Al Plus) 30 ml PO DAILY PRN PRN Reason: HEARTBURN Albuterol (Proventil Neb Soln) 2.5 mg INH Q4H PRN PRN Reason: Dyspnea Albuterol/Ipratropium (Duoneb 3.0-0.5 Mg/3 Ml) 3 ml NEB Q6HRRT PRN PRN Reason: Dyspnea Artificial Tears (Refresh Tears 0.5%) 0 ml EYEBOTH BID [facility] Last Admin: 11/23/18 10:09 Dose: 1 drop Calcium Carbonate/Glycine (Tums) 500 mg PO DAILY PRN PRN Reason: Heartburn Fluticasone Propionate (Flonase) 0 gm NASBOTH BID [facility] Last Admin: 11/23/18 10:10 Dose: Not Given Hydroxychloroquine Sulfate (Plaquenil) 200 mg PO 0800,1800 [facility] Last Admin: 11/23/18 08:18 Dose: 200 mg Sodium Chloride (Normal Saline) 1,000 mls @ 100 mls/hr IV ASDIRECTED [facility] Last Admin: 11/22/18 19:56 Dose: 100 mls/hr Piperacillin/Tazobactam/Dextrose (Zosyn In Dextrose Iso-Osmotic 3.375 Gm) 50 mls @ 100 mls/hr IV Q6H [facility] Last Admin: 11/23/18 07:27 Dose: 100 mls/hr Metoprolol Succinate (Toprol Xl) 25 mg PO 0800 [facility] Last Admin: 11/23/18 08:19 Dose: 25 mg Morphine Sulfate (Morphine) 2 mg IVPUSH Q1H PRN PRN Reason: moderate-severe pain Nitroglycerin (Nitrostat) 0.4 mg SL ASDIRECTED PRN PRN Reason: Chest Pain Ondansetron HCl (Zofran) 4 mg IVPUSH Q4H PRN PRN Reason: Nausea/Vomiting Last Admin: 11/22/18 16:45 Dose: 4 mg Potassium Chloride (Klor-Con M20) 20 meq PO BID [facility] Last Admin: 11/23/18 10:04 Dose: 20 meq Prednisone (Prednisone) 4 mg PO DAILY@0800 [facility] Last Admin: 11/23/18 08:17 Dose: 4 mg Ranitidine HCl (Zantac) 150 mg PO BEDTIME [facility] Last Admin: 11/22/18 20:25 Dose: 150 mg Sodium Chloride (Saline Flush) 10 ml FLUSH Q8HR PRN PRN Reason: keep vein open Last Admin: 11/23/18 10:14 Dose: 10 ml Umeclidinium/Vilanterol (Anoro Ellipta 62.5-25 Mcg) 0 mcg IH DAILY [facility] Last Admin: 11/23/18 10:10 Dose: Not Given Discontinued Medications Diatrizoate Meglum/Diatrizoate Sod (Gastrografin 37%) 30 ml PO ONETIME ONE Stop: 11/22/18 17:17 Last Admin: 11/22/18 19:16 Dose: 30 ml Sodium Chloride (Normal Saline) 500 mls @ 999 mls/hr IV ONETIME ONE Stop: 11/22/18 17:00 Last Admin: 11/22/18 16:38 Dose: 999 mls/hr - Exam Quality Assessment: DVT Prophylaxis (Score 5-lovenox 30 mg SQ due to CKD). No: Supplemental Oxygen, Urine Catheter General: Alert, Oriented, Cooperative, No Acute Distress Lungs: Clear to Auscultation, Normal Respiratory Effort Cardiovascular: Regular Rate, Regular Rhythm, No Murmurs GI/Abdominal Exam: Non-Tender, Distended (mild), Abnormal Bowel Sounds ( hyperactive x 4 quadrants), Hernia (umbilical, reducible, non-tender) Extremities: Other (1+ BLE edema) Skin: Warm, Dry, Intact Neurological: Normal Speech Psy/Mental Status: Alert, Normal Affect, Normal Mood - Problem List Review Problem List Initiated/Reviewed/Updated: Yes - My Orders Last 24 Hours: My Active Orders 11/22/18 15:46 Patient Status [ADT] Routine Oxygen Therapy [RC] PRN Up With Assistance [RC] ASDIRECTED VTE/DVT Education [RC] PER UNIT ROUTINE Sodium Chloride 0.9% [Saline Flush] 10 ml FLUSH Q8HR PRN Peripheral IV Insertion Adult [OM.PC] Routine Resuscitation Status Routine 11/22/18 15:48 Intake and Output [RC] 1400,2200,0600 11/22/18 15:49 Peripheral IV Care [RC] 0900,2100 11/22/18 16:19 Ondansetron [Zofran] 4 mg IVPUSH Q4H PRN 11/22/18 16:22 Vital Signs [RC] 1900,2300,0300,0700,1100,1500 11/22/18 17:00 CULTURE BLOOD [BC] Routine Sodium Chloride 0.9% [Normal Saline] 1,000 ml IV ASDIRECTED 11/22/18 18:18 Albuterol [Proventil Neb Soln] 2.5 mg INH Q4H PRN Albuterol/Ipratropium [DuoNeb 3.0-0.5 MG/3 ML] 3 ml NEB Q6HRRT PRN Calcium Carbonate [Tums] 500 mg PO DAILY PRN Nitroglycerin [Nitrostat] 0.4 mg SL ASDIRECTED PRN 11/22/18 18:49 Alum Hydrox/Mag Hydrox/Simeth [Mag-Al Plus] 30 ml PO DAILY PRN 11/22/18 19:23 Acetaminophen [Tylenol Extra Strength] 1,000 mg PO Q6H PRN Morphine 2 mg IVPUSH Q1H PRN 11/22/18 19:30 Piperacillin/Tazobactam/Dext [Zosyn in Dextrose Iso-Osmotic 3.375 GM] 50 ml IV Q6H 11/22/18 21:00 Carboxymethylcellulose Sodium [Refresh Tears 0.5%] 0 ml EYEBOTH BID Fluticasone Propionate [Flonase] 0 gm NASBOTH BID Potassium Chloride [Klor-Con M20] 20 meq PO BID Ranitidine [Zantac] 150 mg PO BEDTIME 11/23/18 08:00 Hydroxychloroquine [Plaquenil] 200 mg PO 0800,1800 Metoprolol Succinate [Toprol XL] 25 mg PO 0800 predniSONE 4 mg PO DAILY@0800 11/23/18 09:00 Umeclidinium Brm/Vilanterol Tr [Anoro Ellipta 62.5-25 MCG] 0 mcg IH DAILY 11/23/18 Lunch Full Liquid Diet [DIET] 11/24/18 05:11 CBC WITH MANUAL DIFF [HEME] AM COMPREHENSIVE METABOLIC PN,CMP [CHEM] AM - Plan Plan:: HPI: This is a 78 year old male who presented to the [facility] yesterday with concerns of LLQ abdominal pain and diarrhea. Diarrhea had started on and pain had started a few days prior. The pain was worsened with eating. He reported 3-4 stools in the 12 hours prior to admission. He had work-up with labs and CT abd/pelvis. Lab work-up included WBC 2.3, Hgb 10.2, Mg 1.8, Na 125, Creatinine 1.75, GFR 38. UA on admission noted small amount of RBCs, rare bacteria. He had the CT on admission which revealed acute uncomplicated sigmoid diverticulitis. PMH significant for CLL with Imbruvica currently on hold per oncology for 10 days (started 11/19/18). Patient had reported that his colonoscopy 7-8 years ago mentioned diverticulosis, but he denies having a flare -up prior to this. Update on rounds: Patient denies any pain. No further stools since admission. He was able to tolerate the clear liquid diet without pain or nausea. Primary Assessment/Plan: Acute uncomplicated sigmoid diverticulitis. Due to multiple allergies, patient placed on zosyn 3.375 gm IV q6 hours. Advance diet to full liquid for lunch; if tolerated will advance diet to soft for supper. Continue Tylenol, morphine, and zofran PRN. WBC 2.06. Repeat CBC in AM. BC x 2 pending. Has remained afebrile overnight. Dehydration, improving. Na 131, K 4.0, BUN 32, creatinine 1.76. Continue NS at 100 mL/hr. Repeat CMP in AM. If tolerating diet well, will back off fluids this evening. Generalized weakness. Anemia. Hgb 9.6. Baseline Hgb 12.1. Likely dilutional effect overnight, however will continue to monitor. No blood in stools. Aspirin on hold. CKD stage 3. GFR 38. Baseline GFR 46, creatinine 1.47. HTN. BP lower end of normal on admission so norvasc, losartan-HCTZ, and hydralazine on hold. BP 125/59 this AM. Will continue to hold these medications for now. Umbilical hernia noted on CT. This is reducible and causes no pain to patient. Secondary Assessment/Plan: CLL. Imbruvica on hold. Consulted with clinician oncology oncologist, Dr. Workman, regarding patient status. He voices no treatment changes needed and to continue monitoring the CBC. He recommends checking with Dr. Martinez's regarding patient being due for IVIG on Sunday (11/27/18). CAD, stable. Continue toprol XL. Chronic diastolic heart failure. ECHO (2017) EF 60%, normal systolic function, grade 1 diastolic dysfunction. No signs of fluids overload at present. COPD, stable. Continue with inhaler, nebs PRN. Hyperlipidemia history. Not on medication. Check lipids in AM. Rheumatoid arthritis. Continue plaquenil and prednisone. Hypokalemia. Continue oral potassium replacement. Obesity, BMI 31.46. BPH with urinary frequency. Continue flomax. Hypogammaglobulinemia. GERD. Continue oral zantac. DVT prophylaxis. Score of 5. Lovenox 30 mg SQ daily (due to CKD). Overall plan: Continue with IV fluids and IV zosyn. Continue to advance diet as able. Repeat labs in the AM.
[2018-11-23] MEDS ORDERED: Enoxaparin 30 MG/0.3 ML Syringe SUBCUT SCH (12:00)
[2018-11-23] MEDS: Tamsulosin 0.4 MG Cap.ER PO SCH (17:55)
[2018-11-23] MEDS: Sodium Chloride 0.9% 1,000 ML IV SCH (19:39)
[2018-11-23] MEDS ORDERED: Sodium Chloride 0.9% 1,000 ML IV SCH (21:45)
[2018-11-24] MEDS: Piperacillin/Tazobactam/Dext 50 ML IV SCH ×4 (01:53→19:05)
[2018-11-24] MEDS: Hydroxychloroquine 200 MG Tab PO SCH ×2 (08:29→18:24)
[2018-11-24] MEDS: predniSONE 1 MG Tab PO SCH (08:29)
[2018-11-24] MEDS: Carboxymethylcellulose Sodium 0.5% Ophth Soln 15 ML Bottle EYEBOTH SCH ×2 (08:55→21:33)
[2018-11-24] MEDS: VILANTEROL TR IH SCH (08:56)
[2018-11-24] MEDS: Potassium Chloride 20 MEQ Tab.ER PO SCH ×2 (08:56→21:32)
[2018-11-24] MEDS: Metoprolol Succinate 25 MG Tab.ER PO SCH (08:56)
[2018-11-24] MEDS: UMECLIDINIUM BRM IH SCH (08:56)
[2018-11-24 09:43] LABS: ANION GAP 14.4 mmol/L (5-15)
[2018-11-24] MEDS: Hydrochlorothiazide 12.5 MG Cap PO SCH (11:22)
[2018-11-24] MEDS: Losartan 50 MG Tab PO SCH (11:22)
[2018-11-24] MEDS: Enoxaparin 40 MG/0.4 ML Syringe SUBCUT SCH (11:22)
[2018-11-24] MEDS: Hydrocortisone 1% Crm 30 GM Tube TOP PRN ×2 (11:25→21:33)
--- NOTE | 2018-11-24 11:59 | PCM.PN ---
- General Info Date of Service: 11/24/18 Functional Status: Reports: Pain Controlled, Tolerating Diet, Ambulating, Urinating - Review of Systems General: Reports: Weakness (improving), Fatigue. Denies: Fever, Chills HEENT: Reports: Glasses, Headaches Pulmonary: Reports: Cough. Denies: Shortness of Breath Cardiovascular: Reports: Edema. Denies: Chest Pain, Palpitations Gastrointestinal: Reports: Abdominal Pain (only with coughing and position changes, no pain with eating), Constipation, Other (Bloated, no BM since 11/22/18 ). Denies: Decreased Appetite, Diarrhea, Nausea, Vomiting Genitourinary: Reports: No Symptoms Skin: Reports: Rash (right thigh, started last night, itching; questions allergic reaction to antibiotic; no other rashes) Neurological: Reports: Headache. Denies: Dizziness Psychiatric: Reports: No Symptoms - Patient Data Vitals - Most Recent: Last Vital Signs Temp 97.1 F 11/24/18 11:00 Pulse 73 11/24/18 11:00 Resp 16 11/24/18 11:00 BP 141/67 H 11/24/18 11:22 Pulse Ox 94 L 11/24/18 11:00 Weight - Most Recent: 229 lb 3.2 oz I&O - Last 24 Hours: Intake & Output 11/23/18 11/24/18 11/24/18 22:59 06:59 14:59 Intake Total 770 3789 206 Output Total 1300 Balance 770 2489 206 Lab Results Last 24 Hours: Laboratory Results - last 24 hr 11/24/18 11/24/18 Range/Units 07:45 07:45 WBC 1.89 L* (5.00-10.00) 10^3/uL RBC 3.18 L (4.50-6.00) 10^6/uL Hgb 10.3 L (13.0-17.0) g/dL Hct 29.8 L (40.0-52.0) % MCV 93.7 H (82.0-92.0) fL MCH 32.4 H (27.0-31.0) pg MCHC 34.6 (32.0-36.0) g/dL RDW 12.3 (11.5-14.5) % RDW Coeff of Aubree 12.3 Plt Count 167 (150-400) 10^3/uL MPV 11.4 H (7.4-10.4) fL Neutrophils % (Manual) 13 L (50-70) % Band Neutrophils % 2 L (4-12) % Lymphocytes % (Manual) 27 (20-40) % Monocytes % (Manual) 51 H (2-8) % Eosinophils % (Manual) 7 H (1-3) % Absolute Neutrophils 0.25 Band Neutrophils # 0.04 Lymphocytes # (Manual) 0.51 Monocytes # (Manual) 0.96 Eosinophils # (Manual) 0.13 Sodium 134 L (136-145) mmol/L Potassium 3.6 (3.3-5.3) mmol/L Chloride 99 (98-115) mmol/L Carbon Dioxide 24.2 (21.0-32.0) mmol/L Anion Gap 14.4 (5-15) mmol/L BUN 22 (6-25) mg/dL Creatinine 1.56 H (0.51-1.17) mg/dL Est Cr Clr Drug Dosing 44.64 mL/min Estimated GFR (MDRD) 43 mL/min Glucose 92 (75 - 99) mg/dL Calcium 8.2 L (8.7-10.3) mg/dL Total Bilirubin 0.6 (0.2-1.0) mg/dL AST 31 (15-37) U/L ALT 22 (12-78) U/L Alkaline Phosphatase 38 L (46-116) IU/L Total Protein 5.7 L (6.4-8.2) g/dL Albumin 2.56 L (3.00-4.80) g/dL Triglycerides 79 (30-150) mg/dL Cholesterol 106 (100-199) mg/dL LDL Cholesterol, Calc 58 (0-100) mg/dL HDL Cholesterol 32 L (40-60) mg/dL Mark Results Last 24 Hours: Microbiology 11/22/18 17:00 Aerobic Blood Culture - Preliminary Blood NO GROWTH AFTER 1 DAY Anaerobic Blood Culture - Preliminary NO GROWTH AFTER 1 DAY Med Orders - Current: Current Medications Acetaminophen (Tylenol Extra Strength) 1,000 mg PO Q6H PRN PRN Reason: mild pain Al Hydroxide/Mg Hydroxide (Mag-Al Plus) 30 ml PO DAILY PRN PRN Reason: HEARTBURN Albuterol (Proventil Neb Soln) 2.5 mg INH Q4H PRN PRN Reason: Dyspnea Albuterol/Ipratropium (Duoneb 3.0-0.5 Mg/3 Ml) 3 ml NEB Q6HRRT PRN PRN Reason: Dyspnea Artificial Tears (Refresh Tears 0.5%) 0 ml EYEBOTH BID [facility] Last Admin: 11/24/18 08:55 Dose: 1 drop Aspirin (Halfprin) 81 mg PO DAILY [facility] Calcium Carbonate/Glycine (Tums) 500 mg PO DAILY PRN PRN Reason: Heartburn Enoxaparin Sodium (Lovenox) 40 mg SUBCUT Q24H [facility] Last Admin: 11/24/18 11:22 Dose: 40 mg Hydrochlorothiazide (Hydrochlorothiazide) 12.5 mg PO DAILY [facility] Last Admin: 11/24/18 11:22 Dose: 12.5 mg Hydrocortisone (Hydrocortisone 1% Crm) 0 gm TOP QID PRN PRN Reason: rash/itching Last Admin: 11/24/18 11:25 Dose: 1 applic Hydroxychloroquine Sulfate (Plaquenil) 200 mg PO 0800,1800 [facility] Last Admin: 11/24/18 08:29 Dose: 200 mg Piperacillin/Tazobactam/Dextrose (Zosyn In Dextrose Iso-Osmotic 3.375 Gm) 50 mls @ 100 mls/hr IV Q6H [facility] Last Admin: 11/24/18 06:36 Dose: 100 mls/hr Losartan Potassium (Cozaar) 50 mg PO DAILY [facility] Last Admin: 11/24/18 11:22 Dose: 50 mg Metoprolol Succinate (Toprol Xl) 25 mg PO 0800 [facility] Last Admin: 11/24/18 08:56 Dose: 25 mg Morphine Sulfate (Morphine) 2 mg IVPUSH Q1H PRN PRN Reason: moderate-severe pain Nitroglycerin (Nitrostat) 0.4 mg SL ASDIRECTED PRN PRN Reason: Chest Pain Ondansetron HCl (Zofran) 4 mg IVPUSH Q4H PRN PRN Reason: Nausea/Vomiting Last Admin: 11/22/18 16:45 Dose: 4 mg Potassium Chloride (Klor-Con M20) 20 meq PO BID [facility] Last Admin: 11/24/18 08:56 Dose: 20 meq Prednisone (Prednisone) 4 mg PO DAILY@0800 [facility] Last Admin: 11/24/18 08:29 Dose: 4 mg Ranitidine HCl (Zantac) 150 mg PO BEDTIME [facility] Last Admin: 11/23/18 20:04 Dose: 150 mg Sodium Chloride (Saline Flush) 10 ml FLUSH Q8HR PRN PRN Reason: keep vein open Last Admin: 11/23/18 10:14 Dose: 10 ml Tamsulosin HCl (Flomax) 0.4 mg PO 1800 [facility] Last Admin: 11/23/18 17:55 Dose: 0.4 mg Umeclidinium/Vilanterol (Anoro Ellipta 62.5-25 Mcg) 0 mcg IH DAILY [facility] Last Admin: 11/24/18 08:56 Dose: 1 inhalation Discontinued Medications Diatrizoate Meglum/Diatrizoate Sod (Gastrografin 37%) 30 ml PO ONETIME ONE Stop: 11/22/18 17:17 Last Admin: 11/22/18 19:16 Dose: 30 ml Enoxaparin Sodium (Lovenox) 30 mg SUBCUT Q24H [facility] Last Admin: 11/23/18 12:44 Dose: 30 mg Fluticasone Propionate (Flonase) 0 gm NASBOTH BID [facility] Last Admin: 11/23/18 20:04 Dose: Not Given Sodium Chloride (Normal Saline) 500 mls @ 999 mls/hr IV ONETIME ONE Stop: 11/22/18 17:00 Last Admin: 11/22/18 16:38 Dose: 999 mls/hr Sodium Chloride (Normal Saline) 1,000 mls @ 100 mls/hr IV ASDIRECTED [facility] Last Admin: 11/23/18 19:39 Dose: 100 mls/hr Sodium Chloride (Normal Saline) 1,000 mls @ 50 mls/hr IV ASDIRECTED [facility] Last Admin: 11/24/18 07:41 Dose: 50 mls/hr - Exam Quality Assessment: DVT Prophylaxis (Lovenox, teds). No: Supplemental Oxygen General: Alert, Oriented, Cooperative, No Acute Distress Lungs: Clear to Auscultation, Normal Respiratory Effort Cardiovascular: Regular Rate, Regular Rhythm, No Murmurs GI/Abdominal Exam: Normal Bowel Sounds, Soft, Non-Tender, Distended (mild). No : Rigid Extremities: Other (1+ pitting edema to BLE, L>R) Skin: Warm, Dry, Intact, Rash (faint macular rash to right lateral thigh, approximately the diameter of an orange; no other rashes noted) Neurological: Normal Speech Psy/Mental Status: Alert, Normal Affect, Normal Mood - Problem List Review Problem List Initiated/Reviewed/Updated: Yes - My Orders Last 24 Hours: My Active Orders 11/23/18 18:00 Tamsulosin [Flomax] 0.4 mg PO 1800 11/24/18 11:05 Hydrocortisone [Hydrocortisone 1% Crm] 0 gm TOP QID PRN 11/24/18 11:06 Antiembolic Devices [RC] PER UNIT ROUTINE MARTHA Hose [Antiembolic Hose] [OM.PC] Routine 11/24/18 11:15 Losartan [Cozaar] 50 mg PO DAILY hydroCHLOROthiazide 12.5 mg PO DAILY 11/24/18 12:00 Enoxaparin [Lovenox] 40 mg SUBCUT Q24H 11/24/18 Lunch Regular Diet [DIET] 11/25/18 05:11 BMP [BASIC METABOLIC PANEL,BMP] [CHEM] AM CBC WITH MANUAL DIFF [HEME] AM 11/25/18 09:00 Aspirin [Halfprin] 81 mg PO DAILY - Plan Plan:: HPI: This is a 78 year old male who presented to the [facility] yesterday with concerns of LLQ abdominal pain and diarrhea. Diarrhea had started on and pain had started a few days prior. The pain was worsened with eating. He reported 3-4 stools in the 12 hours prior to admission. He had work-up with labs and CT abd/pelvis. Lab work-up included WBC 2.3, Hgb 10.2, Mg 1.8, Na 125, Creatinine 1.75, GFR 38. UA on admission noted small amount of RBCs, rare bacteria. He had the CT on admission which revealed acute uncomplicated sigmoid diverticulitis. PMH significant for CLL with Imbruvica currently on hold per oncology for 10 days (started 11/19/18). Patient had reported that his colonoscopy 7-8 years ago mentioned diverticulosis, but he denies having a flare -up prior to this. Update on rounds: Patient reports his weakness is improving. He has not had a stool since admission and does feel a bit bloated today. He tolerated the full liquid and soft diet without issues. is present on rounds. Primary Assessment/Plan: Acute uncomplicated sigmoid diverticulitis, improving. Continue zosyn 3.375 gm IV q6h. Advance diet to regular, low fiber. WBC 1.89. Blood cultures x 2 showing no growth (preliminary). CBC in AM. If no stool by 1600, then may try one time dose of milk of magnesia 30 mL po. Leukopenia, neutropenia. Chemotherapy medication has been on hold. Neutropenic precautions. Rash right lateral thigh. Will continue to monitor. Could be related to antibiotics, however not a true allergy at this time so will proceed with Zosyn. Patient not able to tolerate benadryl, but can use claritin if needed. Hydrocortisone cream PRN. Dehydration, resolved. Na 134, K 3.6, creatinine 1.56. Discontinue IVF. Generalized weakness, improving. Patient encouraged to be up and moving in the room/hallway. Anemia. Hgb improved to 10.3. Baseline Hgb 12.1. Likely dilutional effect, however will continue to monitor. No blood in stools. CKD stage 3, stable. GFR 43. Baseline GFR 46, creatinine 1.47. BMP in AM. HTN. BPs 100-140s systolic. Restart losartan-HCTZ at 50% of home dose--50 mg- 12.5 mg daily. Continue holding hydralazine and norvasc. Umbilical hernia noted on CT. This is reducible and causes no pain to patient. Secondary Assessment/Plan: CLL. Imbruvica on hold. Consulted with [facility] oncologist, Dr. Workman, regarding patient status on 11/23/18. He voices no treatment changes needed and to continue monitoring the CBC. He recommends checking with Dr. Martinez's regarding patient being due for IVIG on Sunday (11/27/18). CAD, stable. Continue toprol XL. Restart baby aspirin. Chronic diastolic heart failure. ECHO (2017) EF 60%, normal systolic function, grade 1 diastolic dysfunction. COPD, stable. Continue with inhaler, nebs PRN. Hyperlipidemia history. LDL 58. Rheumatoid arthritis. Continue plaquenil and prednisone. Hypokalemia. Continue oral potassium replacement. Obesity, BMI 31.46. BPH with urinary frequency. Continue flomax. Hypogammaglobulinemia. GERD. Continue oral zantac. DVT prophylaxis. Score of 5. Lovenox 40 mg SQ daily. Teds on. Overall plan: Discontinue IV fluids. Continue zosyn and monitoring for any further allergic reaction symptoms. Advance diet to regular, low fiber. If patient continues to progress as expected, he may be able to be discharged home tomorrow. He will need an outpatient colonoscopy in 6 weeks.
[2018-11-24] MEDS: Sodium Chloride 0.9% 10 ML Syringe FLUSH PRN (13:05)
[2018-11-24] MEDS ORDERED: Magnesium Hydroxide 400 MG/5 ML Susp 30 ML Cup PO PRN (15:36)
[2018-11-24] MEDS: Tamsulosin 0.4 MG Cap.ER PO SCH (18:24)
[2018-11-24] MEDS: amLODIPine 2.5 MG Tab PO SCH (21:30)
[2018-11-25] MEDS: Piperacillin/Tazobactam/Dext 50 ML IV SCH ×3 (01:09→12:36)
[2018-11-25 08:13] LABS: ANION GAP 17.2 mmol/L (5-15)
[2018-11-25] MEDS: predniSONE 1 MG Tab PO SCH (08:29)
[2018-11-25] MEDS: Losartan 50 MG Tab PO SCH (08:30)
[2018-11-25] MEDS: Hydrochlorothiazide 12.5 MG Cap PO SCH (08:30)
[2018-11-25] MEDS: amLODIPine 2.5 MG Tab PO SCH (08:30)
[2018-11-25] MEDS: Potassium Chloride 20 MEQ Tab.ER PO SCH (08:30)
[2018-11-25] MEDS: Hydroxychloroquine 200 MG Tab PO SCH (08:31)
[2018-11-25] MEDS: Metoprolol Succinate 25 MG Tab.ER PO SCH (08:34)
[2018-11-25] MEDS: Carboxymethylcellulose Sodium 0.5% Ophth Soln 15 ML Bottle EYEBOTH SCH (08:35)
[2018-11-25] MEDS ORDERED: Aspirin 81 MG Tab.EC PO SCH (09:00)
[2018-11-25] MEDS: VILANTEROL TR IH SCH (09:06)
[2018-11-25] MEDS: UMECLIDINIUM BRM IH SCH (09:06)
[2018-11-25] MEDS ORDERED: amLODIPine 5 MG Tab PO SCH (09:56)
[2018-11-25] MEDS ORDERED: Losartan 50 MG Tab PO ONE (09:57)
[2018-11-25] MEDS ORDERED: Hydrochlorothiazide 12.5 MG Cap PO SCH (10:00)
--- NOTE | 2018-11-25 10:12 | PCM.DCSUM1 ---
Discharge Summary - Hospital Course Brief History: This is a 78 year old male who presented to the [facility] with concerns of LLQ abdominal pain and diarrhea. Diarrhea had started on and pain had started a few days prior. The pain was worsened with eating. He reported 3-4 stools in the 12 hours prior to admission. He had work-up with labs and CT abd/pelvis. Lab work-up included WBC 2.3, Hgb 10.2, Mg 1.8, Na 125, Creatinine 1.75, GFR 38. UA on admission noted small amount of RBCs, rare bacteria. He had the CT on admission which revealed acute uncomplicated sigmoid diverticulitis. PMH significant for CLL with Imbruvica currently on hold per oncology for 10 days (started 11/19/18). Patient had reported that his colonoscopy 7-8 years ago mentioned diverticulosis, but he denies having a flare -up prior to this. - Discharge Data Discharge Date: 11/25/18 Discharge Disposition: Home, Self-Care 01 Condition: Good - Patient Summary/Data Complications: None Consults: Dr. Workman and Dr. Martinez's, [facility]. - Patient Instructions Diet: Regular Diet as Tolerated Activity: As Tolerated Showering/Bathing: May Shower Notify Provider of: Fever, Increased Pain, Nausea and/or Vomiting (weakness) Other/Special Instructions: You will need a follow-up colonoscopy in 6 weeks. This can be set up at your follow-up visit. You may use tylenol 1000 mg every 6 hours as needed for pain. I have a call in to Dr. Martinez's nurse regarding the IVIG for Sunday and will let you know once I hear back. Please monitor your blood pressure and pulse twice a day and bring with to your appointment. You can also bring your home blood pressure cuff and it can be checked against the nurse that day. - Discharge Plan *PRESCRIPTION DRUG MONITORING PROGRAM REVIEWED*: Not Applicable *COPY OF PRESCRIPTION DRUG MONITORING REPORT IN PATIENT MELISSA: Not Applicable Prescriptions/Med Rec: metroNIDAZOLE [Flagyl] 500 mg PO Q8HR 7 Days #28 tablet Amoxicillin/Clavulanate K [Augmentin 500-125 MG] 1 tab PO Q8H 7 Days #28 tab Home Medications: Home Meds Albuterol [Proair HFA] 2 puff INH Q4H PRN 12/21/14 [History] Losartan/Hydrochlorothiazide [Hyzaar 100-25] 1 tab PO 0800 12/21/14 [History] Multivitamin [Multivitamins] 1 tab PO 0800 12/21/14 [History] Tamsulosin [Flomax] 0.4 mg PO 1800 12/21/14 [History] Albuterol/Ipratropium [DuoNeb 3.0-0.5 MG/3 ML] 3 ml NEB Q6HRRT PRN 03/19/17 [ History] Aspirin 81 mg PO 0800 03/19/17 [History] Hydroxychloroquine Sulfate [Plaquenil] 200 mg PO 0800,1800 03/19/17 [History] Metoprolol Succinate [Toprol XL] 25 mg PO 0800 03/19/17 [History] Nitroglycerin [Nitrostat] 0.4 mg SL ASDIRECTED PRN 03/19/17 [History] Tetrahydrozoline HCl [Visine] 2 drop EYEBOTH BID 03/19/17 [History] predniSONE [Prednisone] 4 mg PO DAILY@0800 03/19/17 [History] Fluticasone Propionate [Flonase] 1 spray NASBOTH BID 04/12/17 [History] Calcium Carbonate/Simethicone [Muriel-Neponset Heartburn+Gas] 1 each PO DAILY PRN 09/07/17 [History] Hydrocortisone [Hydrocortisone 1% Crm] 30 gm TOP ASDIRECTED 09/07/17 [History] Mag Hydrox/Al Hydrox/Simeth [Maalox Maximum Strength Susp] 15 ml PO DAILY PRN [History] Potassium Chloride [Klor-Con M20] 20 meq PO BID 09/07/17 [History] Triamcinolone Acetonide [Triamcinolone Acetonide 0.1% Crm] 15 gm TOP BID PRN [History] Umeclidinium Brm/Vilanterol Tr [Anoro Ellipta 62.5-25 MCG] 1 each IH DAILY 09/07 [History] Ranitidine HCl [Ranitidine] 150 mg PO BEDTIME 11/22/18 [History] amLODIPine [Norvasc] 5 mg PO DAILY 11/22/18 [History] Amoxicillin/Clavulanate K [Augmentin 500-125 MG] 1 tab PO Q8H 7 Days #28 tab [Rx] metroNIDAZOLE [Flagyl] 500 mg PO Q8HR 7 Days #28 tablet 11/25/18 [Rx] Referrals: Olga Lopez ENGINE EMISSION TECHNICIAN [Nurse Practitioner] - 11/27/18 - Discharge Summary/Plan Comment DC Time >30 min.: Yes Discharge Summary/Plan Comment: Date of admission: 11/22/18 Date of discharge: 11/25/18 Admitting diagnosis: Primary: Acute uncomplicated sigmoid diverticulitis, leukopenia/neutropenia, dehydration, weakness Secondary: Anemia, CKD stage 3, HTN, Umbilical hernia, CLL, CAD, Chronic diastolic heart failure, COPD, HLD history, RA, Hypokalemia, Obesity, BPH with urinary frequency, GERD Final diagnosis: Primary: Acute uncomplicated sigmoid diverticulitis, resolving; leukopenia/ neutropenia, resolving; dehydration, resolved; weakness, resolving Secondary: Anemia, CKD stage 3, HTN, Umbilical hernia, CLL, CAD, Chronic diastolic heart failure, COPD, HLD history, RA, Hypokalemia, Obesity, BPH with urinary frequency, GERD Procedures performed: None Hospital Course: The patient's hospital course progressed as expected. He was given IV fluids and IV zosyn (due to multiple allergies) and responded well to both of these. The patient remained afebrile. He progressed without difficulty through the phases of the diets from clear to regular, low fiber without issue. He did not require any medication for pain. He did take zofran IV early on for nausea. He had not had a bowel movement since admission so the day prior to discharge he was given milk of magnesia with 4-5 stools thereafter. He reported resolution of his bloating. The patient's blood pressure remained on the lower end of normal until the day prior to discharge so his blood pressure medications were held until that point. The hydralazine was held indefinitely. language assistant oncologist was called regarding patient's hospital diagnosis and low WBC with no further instructions other than to hold the Imbruvica until 11/29/[address] Martinez's. Patient did have a small macular rash to the right thigh the day before discharge, but this did not worsen and was reported as improving. The patient reported improvement in weakness and was up and walking in the halls the day prior to discharge without incident. Discharge labs: WBC 2.43 Hgb 11.0 Na 139 K 4.0 Creatinine 1.53 GFR 44 LDL 58 New medications on discharge: -Augmentin 500 mg po q8h x 7 days -Flagyl 500 mg po q8h x 7 days Changes to home medications on discharge: -Hold hydralazine -Hold Imbruvica Regular home medications on discharge: -Flonase 1 spray to both nostrils BID -Aspirin 81 mg po daily -Plaquenil 200 mg po BID -Losartan-HCTZ 100-25 mg po daily -Multivitamin 1 tab po daily -Toprol XL 25 mg po daily -Potassium 20 mEq po BID -Nitroglycerin 0.4 mg SL PRN -Ranitidine 150 mg po at HS -Flomax 0.4 mg po at 1800 -Triamcinolone 0.1% 15 gm top BID PRN -Visine 2 drops to both eyes BID -Anoro Ellipta 1 inh daily -Prednisone 4 mg po daily -Norvasc 5 mg po daily -Maalox 15 mL po daily PRN -Calcium carbonate-Simethicone 1 po daily PRN -DuoNebs inh every 6 hours PRN -Albuterol HFA 2 puffs every 4 hours PRN -Hydrocortisone 1% 30 gm top as directed Condition, Treatment, and Final Disposition: The patient is in stable condition at the time of discharge. He will be discharged home with his . He will be seen in the [facility] this week in follow-up. He will need to be set up for a colonoscopy 6 weeks after this flare-up for further evaluation. Patient is to monitor his blood pressures and pulse and bring a log with for review. At the time of this note, provider has not received a call back from [facility] regarding if patient can have the IVIG on 11/27/18 or not. Will update patient and outpatient nurse when available. - General Info Date of Service: 11/25/18 Functional Status: Reports: Pain Controlled, Tolerating Diet, Ambulating, Urinating. Denies: New Symptoms - Review of Systems General: Denies: Fever, Weakness, Fatigue, Chills HEENT: Denies: Headaches Pulmonary: Denies: Shortness of Breath Cardiovascular: Reports: Edema. Denies: Chest Pain, Lightheadedness Gastrointestinal: Reports: Diarrhea (4-5 stools after milk of magnesia yesterday ). Denies: Abdominal Pain (abdomen "sore"), Constipation, Decreased Appetite, Nausea, Vomiting Genitourinary: Reports: No Symptoms Musculoskeletal: Reports: Back Pain (chronic) Skin: Reports: Rash (resolving) Neurological: Denies: Dizziness, Headache Psychiatric: Reports: No Symptoms - Patient Data Vitals - Most Recent: Last Vital Signs Temp 98.9 F 11/25/18 06:16 Pulse 78 11/25/18 08:34 Resp 16 11/25/18 06:16 BP 154/75 H 11/25/18 08:34 Pulse Ox 94 L 11/25/18 06:16 Weight - Most Recent: 229 lb 3.2 oz I&O - Last 24 hours: Intake & Output 11/24/18 11/25/18 11/25/18 22:59 06:59 14:59 Intake Total 1550 200 Balance 1550 200 Lab Results - Last 24 hrs: Laboratory Results - last 24 hr 11/25/18 11/25/18 Range/Units 07:30 07:30 WBC 2.43 L (5.00-10.00) 10^3/uL RBC 3.62 L (4.50-6.00) 10^6/uL Hgb 11.6 L (13.0-17.0) g/dL Hct 34.2 L (40.0-52.0) % MCV 94.5 H (82.0-92.0) fL MCH 32.0 H (27.0-31.0) pg MCHC 33.9 (32.0-36.0) g/dL RDW 12.5 (11.5-14.5) % RDW Coeff of Aubree 12.5 Plt Count 190 (150-400) 10^3/uL MPV 10.3 (7.4-10.4) fL Neutrophils % (Manual) 9 L (50-70) % Band Neutrophils % 2 L (4-12) % Lymphocytes % (Manual) 23 (20-40) % Atypical Lymphs % 4 Monocytes % (Manual) 58 H (2-8) % Eosinophils % (Manual) 4 H (1-3) % Absolute Neutrophils 0.2673 Lymphocytes # (Manual) 0.6561 Monocytes # (Manual) 1.4094 Eosinophils # (Manual) 0.0972 Sodium 139 (136-145) mmol/L Potassium 4.0 (3.3-5.3) mmol/L Chloride 99 (98-115) mmol/L Carbon Dioxide 26.8 (21.0-32.0) mmol/L Anion Gap 17.2 H (5-15) mmol/L BUN 18 (6-25) mg/dL Creatinine 1.53 H (0.51-1.17) mg/dL Est Cr Clr Drug Dosing 45.52 mL/min Estimated GFR (MDRD) 44 mL/min Glucose 90 (75 - 99) mg/dL Calcium 8.8 (8.7-10.3) mg/dL ERNIE Results - Last 24 hrs: Microbiology 11/22/18 17:00 Aerobic Blood Culture - Preliminary Blood NO GROWTH AFTER 2 DAYS Anaerobic Blood Culture - Preliminary NO GROWTH AFTER 2 DAYS Med Orders - Current: Current Medications Acetaminophen (Tylenol Extra Strength) 1,000 mg PO Q6H PRN PRN Reason: mild pain Last Admin: 11/25/18 06:28 Dose: 1,000 mg Al Hydroxide/Mg Hydroxide (Mag-Al Plus) 30 ml PO DAILY PRN PRN Reason: HEARTBURN Albuterol (Proventil Neb Soln) 2.5 mg INH Q4H PRN PRN Reason: Dyspnea Albuterol/Ipratropium (Duoneb 3.0-0.5 Mg/3 Ml) 3 ml NEB Q6HRRT PRN PRN Reason: Dyspnea Amlodipine Besylate (Norvasc) 5 mg PO DAILY [facility] Artificial Tears (Refresh Tears 0.5%) 0 ml EYEBOTH BID [facility] Last Admin: 11/25/18 08:35 Dose: 1 drop Aspirin (Halfprin) 81 mg PO DAILY [facility] Last Admin: 11/25/18 08:30 Dose: 81 mg Calcium Carbonate/Glycine (Tums) 500 mg PO DAILY PRN PRN Reason: Heartburn Enoxaparin Sodium (Lovenox) 40 mg SUBCUT Q24H [facility] Last Admin: 11/24/18 11:22 Dose: 40 mg Hydrochlorothiazide (Hydrochlorothiazide) 12.5 mg PO DAILY [facility] Last Admin: 11/25/18 08:30 Dose: 12.5 mg Hydrochlorothiazide (Hydrochlorothiazide) 12.5 mg PO ONETIME [facility] Hydrocortisone (Hydrocortisone 1% Crm) 0 gm TOP QID PRN PRN Reason: rash/itching Last Admin: 11/24/18 21:33 Dose: 1 applic Hydroxychloroquine Sulfate (Plaquenil) 200 mg PO 0800,1800 [facility] Last Admin: 11/25/18 08:31 Dose: 200 mg Piperacillin/Tazobactam/Dextrose (Zosyn In Dextrose Iso-Osmotic 3.375 Gm) 50 mls @ 100 mls/hr IV Q6H [facility] Last Admin: 11/25/18 06:30 Dose: 100 mls/hr Losartan Potassium (Cozaar) 50 mg PO DAILY [facility] Last Admin: 11/25/18 08:30 Dose: 50 mg Magnesium Hydroxide (Milk Of Magnesia) 30 ml PO DAILY PRN PRN Reason: Constipation Last Admin: 11/24/18 16:03 Dose: 30 ml Metoprolol Succinate (Toprol Xl) 25 mg PO 0800 [facility] Last Admin: 11/25/18 08:34 Dose: 25 mg Morphine Sulfate (Morphine) 2 mg IVPUSH Q1H PRN PRN Reason: moderate-severe pain Nitroglycerin (Nitrostat) 0.4 mg SL ASDIRECTED PRN PRN Reason: Chest Pain Ondansetron HCl (Zofran) 4 mg IVPUSH Q4H PRN PRN Reason: Nausea/Vomiting Last Admin: 11/22/18 16:45 Dose: 4 mg Potassium Chloride (Klor-Con M20) 20 meq PO BID [facility] Last Admin: 11/25/18 08:30 Dose: 20 meq Prednisone (Prednisone) 4 mg PO DAILY@0800 [facility] Last Admin: 11/25/18 08:29 Dose: 4 mg Ranitidine HCl (Zantac) 150 mg PO BEDTIME [facility] Last Admin: 11/24/18 21:32 Dose: 150 mg Sodium Chloride (Saline Flush) 10 ml FLUSH Q8HR PRN PRN Reason: keep vein open Last Admin: 11/24/18 13:05 Dose: 10 ml Tamsulosin HCl (Flomax) 0.4 mg PO 1800 [facility] Last Admin: 11/24/18 18:24 Dose: 0.4 mg Umeclidinium/Vilanterol (Anoro Ellipta 62.5-25 Mcg) 0 mcg IH DAILY [facility] Last Admin: 11/25/18 09:06 Dose: 1 inhalation Discontinued Medications Amlodipine Besylate (Norvasc) 5 mg PO DAILY [facility] Last Admin: 11/25/18 08:30 Dose: 5 mg Diatrizoate Meglum/Diatrizoate Sod (Gastrografin 37%) 30 ml PO ONETIME ONE Stop: 11/22/18 17:17 Last Admin: 11/22/18 19:16 Dose: 30 ml Enoxaparin Sodium (Lovenox) 30 mg SUBCUT Q24H [facility] Last Admin: 11/23/18 12:44 Dose: 30 mg Fluticasone Propionate (Flonase) 0 gm NASBOTH BID [facility] Last Admin: 11/23/18 20:04 Dose: Not Given Sodium Chloride (Normal Saline) 500 mls @ 999 mls/hr IV ONETIME ONE Stop: 11/22/18 17:00 Last Admin: 11/22/18 16:38 Dose: 999 mls/hr Sodium Chloride (Normal Saline) 1,000 mls @ 100 mls/hr IV ASDIRECTED [facility] Last Admin: 11/23/18 19:39 Dose: 100 mls/hr Sodium Chloride (Normal Saline) 1,000 mls @ 50 mls/hr IV ASDIRECTED [facility] Last Admin: 11/24/18 07:41 Dose: 50 mls/hr Losartan Potassium (Cozaar) 50 mg PO ONETIME ONE Stop: 11/25/18 09:58 - Exam Quality Assessment: Reports: DVT Prophylaxis (lovenox, teds). Denies: Supplemental Oxygen General: Reports: Alert, Oriented, Cooperative, No Acute Distress Lungs: Reports: Clear to Auscultation (right lung soni), Normal Respiratory Effort, Wheezing (expiratory wheeze to left lung soni) Cardiovascular: Reports: Regular Rate, Regular Rhythm, No Murmurs GI/Abdominal Exam: Normal Bowel Sounds, Soft, Non-Tender, No Distention Extremities: Other (1+ pitting edema to BLE with teds on) Skin: Reports: Warm, Dry Neurological: Reports: Normal Speech Psy/Mental Status: Reports: Alert, Normal Affect, Normal Mood
[2018-11-25] MEDS: Enoxaparin 40 MG/0.4 ML Syringe SUBCUT SCH (11:35)
[2018-11-25 11:36] VITALS: BP 157/73
== END 2018-11-25 13:55 | disposition home or self-care (01) | DRG 392 ==
LOC: KA.MS 15:20
PROVIDERS: ADMIT Nurse Practitioner Family; ATTEND Family Medicine
DX: K57.32 Diverticulitis of large intestine without perforation or abscess without bleeding (principal); C91.10 Chronic lymphocytic leukemia of B-cell type not having achieved remission; I13.0 Hypertensive heart and chronic kidney disease with heart failure and stage 1 through stage 4 chronic kidney disease, or unspecified chronic kidney disease; I50.32 Chronic diastolic (congestive) heart failure; D80.1 Nonfamilial hypogammaglobulinemia; Z66 Do not resuscitate; E86.0 Dehydration; E83.42 Hypomagnesemia; D64.9 Anemia, unspecified; I25.118 Atherosclerotic heart disease of native coronary artery with other forms of angina pectoris; E78.5 Hyperlipidemia, unspecified; R19.7 Diarrhea, unspecified; M06.9 Rheumatoid arthritis, unspecified; J44.9 Chronic obstructive pulmonary disease, unspecified; N18.3 Chronic kidney disease, stage 3 (moderate); E66.9 Obesity, unspecified; Z96.641 Presence of right artificial hip joint; Z96.651 Presence of right artificial knee joint; N40.1 Benign prostatic hyperplasia with lower urinary tract symptoms; E87.6 Hypokalemia; R35.0 Frequency of micturition; K21.9 Gastro-esophageal reflux disease without esophagitis; K42.9 Umbilical hernia without obstruction or gangrene; D70.9 Neutropenia, unspecified; Z88.8 Allergy status to other drugs, medicaments and biological substances; Z88.6 Allergy status to analgesic agent; Z91.041 Radiographic dye allergy status; Z95.5 Presence of coronary angioplasty implant and graft; Z85.828 Personal history of other malignant neoplasm of skin; Z87.891 Personal history of nicotine dependence; Z68.31 Body mass index [BMI] 31.0-31.9, adult; Z79.82 Long term (current) use of aspirin; Z88.1 Allergy status to other antibiotic agents; Z88.5 Allergy status to narcotic agent; Z90.49 Acquired absence of other specified parts of digestive tract
CPT/HCPCS: 36415; 74176; 80048; 80053; 80061; 81001; 85007; 85025; 85027; 87040; 94640; A9270-GY; J1650; J2405; J2543; J7030; J7040; Q9963

== ENCOUNTER 2020-03-16 08:34 | Day surgery (SDC) | payer MEDICARE, BC ==
[~2020-03-16 08:34] MED LIST changes: -Cyclopentolate 1% Opth Soln 2 ML Bottle EYELF SCH; -Lactated Ringers 1,000 ML IV SCH; -Phenylephrine 10% Ophth Soln 5 ML Bot EYELF SCH; +Propofol 200 MG/20 ML SDV ONE; -Sodium Chloride 0.9% 5 ML Syringe FLUSH PRN; -Tobramycin 0.3% Ophth Drops 5 ML Bottle EYELF SCH
[2020-03-16] MEDS ORDERED: Propofol 200 MG/20 ML SDV IV ONE (08:35)
[2020-03-16] MEDS: Sodium Chloride 0.9% 10 ML Syringe FLUSH PRN (08:59)
[2020-03-16] MEDS: Lactated Ringers 1,000 ML IV SCH (09:00)
--- NOTE | 2020-03-16 09:11 | PCM.PN ---
- General Info Date of Service: 03/16/20 - Review of Systems Systems Review Comment:: 79-year-old male referred for colonoscopy. He is medically stable to proceed today. His recent history and physical is reviewed and no significant changes are noted. The patient's last colonoscopy was about 10 years ago. He does have a history of colon polyps. He denies any family history of colon cancer. I have discussed the proposed colonoscopy with the patient. Risks such as but not limited to bleeding and GI injury reviewed. He agrees to proceed. - Patient Data Vitals - Most Recent: Last Vital Signs Temp 97.0 F 03/16/20 08:48 Pulse 55 L 03/16/20 08:48 Resp 16 03/16/20 08:48 BP 180/76 H 03/16/20 09:07 Pulse Ox 98 03/16/20 08:48 Weight - Most Recent: 98.43 kg Lab Results Last 24 Hours: Laboratory Results - last 24 hr 03/16/20 Range/Units 07:30 COVID-19 (ANNEL) Negative (NEGATIVE) Med Orders - Current: Current Medications Lactated Ringer's (Ringers, Lactated) 1,000 mls @ 50 mls/hr IV ASDIRECTED JANNETH Last Admin: 03/16/20 09:00 Dose: 50 mls/hr Documented by: Sodium Chloride (Saline Flush) 10 ml FLUSH Q8HR PRN PRN Reason: keep vein open Last Admin: 03/16/20 08:59 Dose: 10 ml Documented by: Discontinued Medications Propofol (Diprivan 20 Ml) Confirm Administered Dose 200 mg .ROUTE .STK-MED ONE Stop: 03/16/20 08:07 Sepsis Event Note - Focused Exam Vital Signs: Vital Signs Temp Pulse Resp BP BP Pulse Ox 03/16/20 09:07 180/76 H 03/16/20 08:48 97.0 F 55 L 16 197/85 H 98 Date Exam was Performed: 03/16/20 Time Exam was Performed: 09:09 - Problem List Review Problem List Initiated/Reviewed/Updated: Yes - My Orders Last 24 Hours: My Active Orders 03/15/20 14:33 Resuscitation Status Routine 03/16/20 08:00 Peripheral IV Care [RC] . DIRECTED Nothing Per Oral Diet [DIET] Lactated Ringers [Ringers, Lactated] 1,000 ml IV ASDIRECTED Sodium Chloride 0.9% [Saline Flush] 10 ml FLUSH Q8HR PRN Peripheral IV Insertion Adult [OM.PC] Routine 03/16/20 08:30 Patient to Empty Bladder [RC] ASDIRECTED 03/16/20 09:00 Verify Patient Consent Obtain [RC] ASDIRECTED - Assessment Assessment:: History of colon polyps - Plan Plan:: Colonoscopy
--- NOTE | 2020-03-16 09:58 | PCM.OPNOTE ---
- General Post-Op/Procedure Note Date of Surgery/Procedure: 03/16/20 Operative Procedure(s): Colonoscopy with Polypectomy Findings: 2 small colon polyps Moderate Sigmoid Diverticulosis without inflammation Pre Op Diagnosis: History of Colon Polyps Post-Op Diagnosis: Colon Polyps. Sigmoid Diverticulosis Anesthesia Technique: MAC Primary Surgeon: Mc Neri Pathology: Colon Polyps EBL in mLs: 0 Complications: None Condition: Good
[2020-03-16 11:33] VITALS: BP 159/85; PULSE 53
--- NOTE | 2020-03-16 14:16 | OR ---
DATE OF SURGERY: 03/16/2020 SURGEON: Mc Neri MD PREOPERATIVE DIAGNOSIS: History of colon polyps. POSTOPERATIVE DIAGNOSIS: Colon polyps and sigmoid diverticulosis. OPERATION PERFORMED: Colonoscopy with polypectomy. INDICATIONS FOR SURGERY: This 79-year-old male presents today for colonoscopy. His last colon exam was about 10 years ago. He does have a history of having had colon polyps removed in the past. FINDINGS: Two polyps are noted on today's exam. One is in the distal transverse colon. This is a 5 mm sessile polyp. The other is in the sigmoid region approximately 20 cm from the anal verge. This is a 7 mm semi- pedunculated polyp. The patient also has a moderate degree of sigmoid diverticulosis. This does not appear to be acutely inflamed or otherwise complicated. The remainder of the colon is normal. DESCRIPTION OF PROCEDURE: The patient was taken to the operating room. He was given intravenous sedation and with him in the left lateral decubitus position, digital rectal exam was performed showing no rectal masses. The Olympus colonoscope was inserted into the rectum. Retroflexed examination of the rectal canal was performed. The scope was then carefully advanced under direct visualization through the entire length of the colon until cecum is reached. Cecal acquisition is confirmed by noting the normal internal cecal anatomy including the appendiceal orifice and ileocecal valve. The light was also noted to transilluminate the abdominal wall in the right lower quadrant. After examining the cecum, the scope was slowly withdrawn sequentially re-examining the colonic segments. In the distal transverse colon and in the sigmoid region, the above-described polyps were identified. These were each removed with a cautery snare as they are encountered during withdrawal of the scope, and they are both retrieved into a polyp trap. These polyps were submitted as pathologic specimen. Polypectomy sites were clear without sign of bleeding or other complication. After the entire colon and rectum had been fully examined, the scope was removed and the patient was taken from the operating room in satisfactory condition. ESTIMATED BLOOD LOSS: Zero. COMPLICATIONS: None. PROGNOSIS: Good. /[id number]/MODL
== END 2020-03-16 11:25 | disposition home or self-care (01) ==
LOC: KA.SDS 08:34
PROVIDERS: ATTEND Surgery
DX: Z12.11 Encounter for screening for malignant neoplasm of colon (principal); D12.3 Benign neoplasm of transverse colon; D12.5 Benign neoplasm of sigmoid colon; K57.30 Diverticulosis of large intestine without perforation or abscess without bleeding; D64.9 Anemia, unspecified; C91.10 Chronic lymphocytic leukemia of B-cell type not having achieved remission; I25.10 Atherosclerotic heart disease of native coronary artery without angina pectoris; J44.9 Chronic obstructive pulmonary disease, unspecified; I13.0 Hypertensive heart and chronic kidney disease with heart failure and stage 1 through stage 4 chronic kidney disease, or unspecified chronic kidney disease; N18.9 Chronic kidney disease, unspecified; I50.9 Heart failure, unspecified; M06.9 Rheumatoid arthritis, unspecified; Z95.5 Presence of coronary angioplasty implant and graft; Z88.1 Allergy status to other antibiotic agents; Z88.8 Allergy status to other drugs, medicaments and biological substances; Z11.59 Encounter for screening for other viral diseases; Z79.82 Long term (current) use of aspirin; Z79.899 Other long term (current) drug therapy; Z86.010 Personal history of colon polyps; Z98.890 Other specified postprocedural states
CPT/HCPCS: 00812; J2704; J7120; U0002

== ENCOUNTER 2020-03-30 09:56 | Day surgery (SDC) | payer MEDICARE, BC ==
[2020-03-30] MEDS ORDERED: Propofol 200 MG/20 ML SDV IV ONE (09:57)
[2020-03-30] MEDS ORDERED: ceFAZolin 1 GM Vial IV ONE (09:57)
[2020-03-30] MEDS ORDERED: Metoprolol Tartrate 5 MG/5 ML SDV IV ONE (09:57)
[2020-03-30] MEDS ORDERED: fentaNYL 100 MCG/2 ML SDV IV ONE (09:57)
[2020-03-30] MEDS ORDERED: Midazolam 1 MG/ML 2 ML SDV IV ONE (09:57)
[2020-03-30] MEDS ORDERED: Ondansetron 4 MG/2 ML SDV IV ONE (09:57)
[2020-03-30] MEDS ORDERED: Sodium Chloride 0.9% 10 ML Syringe FLUSH PRN (10:00)
[2020-03-30] MEDS ORDERED: Lactated Ringers 1,000 ML IV SCH (10:00)
[2020-03-30] MEDS ORDERED: Bupivacaine 0.5%/EPINEPHrine 1:200,000 30 ML SDV ONE ×2 (10:19→11:50)
[2020-03-30] MEDS ORDERED: ceFAZolin 1 GM Vial ONE ×3 (10:23→12:16)
[2020-03-30] MEDS ORDERED: fentaNYL 100 MCG/2 ML SDV ONE ×2 (10:23→13:28)
[2020-03-30] MEDS ORDERED: Midazolam 1 MG/ML 2 ML SDV ONE (10:23)
[2020-03-30] MEDS ORDERED: Propofol 200 MG/20 ML SDV ONE (10:24)
[2020-03-30] MEDS ORDERED: Lactated Ringers 1,000 ML ONE (11:12)
--- NOTE | 2020-03-30 11:16 | PCM.PN ---
- General Info Date of Service: 03/30/20 - Review of Systems Systems Review Comment:: 79-year-old male here for umbilical hernia repair. He is medically stable to proceed today. Recent work-up including colonoscopy did not show any contraindications to proceeding. The site of the hernia has been marked and is confirmed with the patient. The proposed operative procedure is again discussed with the patient including the likely need for use of mesh. He appears to understand and agrees to proceed. His recent consult and history and physical is reviewed and no significant changes are noted. - Patient Data Vitals - Most Recent: Last Vital Signs Temp 95.9 F L 03/30/20 10:28 Pulse 57 L 03/30/20 10:28 Resp 18 03/30/20 10:28 BP 185/76 H 03/30/20 10:28 Pulse Ox 98 03/30/20 10:28 Weight - Most Recent: 98.43 kg Med Orders - Current: Current Medications Lactated Ringer's (Ringers, Lactated) 1,000 mls @ 50 mls/hr IV ASDIRECTED JANNETH Last Admin: 03/30/20 10:31 Dose: 50 mls/hr Documented by: Sodium Chloride (Saline Flush) 10 ml FLUSH Q8HR PRN PRN Reason: keep vein open Sepsis Event Note - Focused Exam Vital Signs: Vital Signs Temp Pulse Resp BP Pulse Ox 03/30/20 10:28 95.9 F L 57 L 18 185/76 H 98 Date Exam was Performed: 03/30/20 Time Exam was Performed: 11:14 - Problem List Review Problem List Initiated/Reviewed/Updated: Yes - My Orders Last 24 Hours: My Active Orders 03/29/20 13:42 Resuscitation Status Routine 03/30/20 Breakfast Nothing Per Oral Diet [DIET] 03/30/20 10:00 Antiembolic Devices [RC] PER UNIT ROUTINE Peripheral IV Care [RC] . DIRECTED Lactated Ringers [Ringers, Lactated] 1,000 ml IV ASDIRECTED Sodium Chloride 0.9% [Saline Flush] 10 ml FLUSH Q8HR PRN Peripheral IV Insertion Adult [OM.PC] Routine 03/30/20 10:30 Patient to Empty Bladder [RC] ASDIRECTED Sequential Compression Device [OM.PC] Routine 03/30/20 11:00 Verify Patient Consent Obtain [RC] ASDIRECTED - Assessment Assessment:: Umbilical hernia - Plan Plan:: Umbilical hernia repair with mesh
[2020-03-30] MEDS ORDERED: Bacitracin/Neomycin/Polymyxin B Oint 0.9 GM U/D Packet ONE (12:06)
--- NOTE | 2020-03-30 13:20 | PCM.OPNOTE ---
- General Post-Op/Procedure Note Date of Surgery/Procedure: 03/30/20 Operative Procedure(s): Repair umbilical hernia with mesh Findings: Moderate sized umbilical hernia containing preperitoneal fat Pre Op Diagnosis: Umbilical hernia Post-Op Diagnosis: Same Anesthesia Technique: General LMA Primary Surgeon: Mc Neri Pathology: Hernia sac and contents EBL in mLs: 20 Complications: None Condition: Good
[2020-03-30] MEDS: fentaNYL 100 MCG/2 ML SDV IVPUSH PRN ×2 (13:35→13:44)
--- NOTE | 2020-03-30 14:18 | OR ---
DATE OF SURGERY: 03/30/2020 SURGEON: Mc Neri MD PREOPERATIVE DIAGNOSIS: Umbilical hernia. POSTOPERATIVE DIAGNOSIS: Umbilical hernia. OPERATION PERFORMED: Repair of umbilical hernia with mesh. INDICATIONS FOR SURGERY: This 79-year-old male has developed an enlarging umbilical hernia which is increasingly symptomatic. He comes for elective repair. FINDINGS: At the level of the umbilicus, the patient has a hernia defect approximately 3 cm in size. There is preperitoneal fat in the hernia sac, but no bowel involvement. To the right of the hernia defect, there is another small area of weakness in the fascia. The remaining surrounding fascia appears normal. DESCRIPTION OF PROCEDURE: The patient was taken to the operating room. He was given LMA anesthesia and the abdomen was sterilely prepped and draped. The periumbilical area is infiltrated with Marcaine and then a curvilinear incision is made just below the umbilicus. Dissection proceeded down onto the underlying fascia and the hernia sac is identified. It is carefully from the surrounding subcutaneous tissue and the hernia sac is sharply excised from the skin of the umbilicus carefully preserving this skin uninjured. Once the hernia sac is completely isolated, the surrounding fascia is exposed with cautery. The hernia sac is divided circumferentially where it attached to near the fascial edge and then the hernia contents are clamped, divided and ligated with 2-0 Vicryl with the hernia sac and contents being removed. The fascial edges of the hernia defect were then trimmed to provide good quality tissue for approximation. On inspection, there is a small area of weakness noted to the right of the main hernia defect. This area is exposed and reinforced with a #1 Prolene [id number]-vp-brnwa suture. The hernia defect itself is then closed with interrupted #1 Prolene using a Smead-Avilez suturing technique. Incorporated on the anterior surface of the fascia is a flat piece of polypropylene mesh, which had been previously soaked in Ancef in saline. Repair was then continued in this manner until the hernia defect is completely closed. The mesh placement is continued to the right side of the main hernia defect to cover the small area of fascial weakness noted there. Once this had been completed, the fascial edges are trimmed and then the fascial edges are tacked down to the underlying fascia around the periphery circumferentially with a running 2-0 Vicryl suture. This created a solid and securely reinforced closure of the umbilical hernia defect. The wound is then inspected and full hemostasis is assured with use of cautery. The wound is then irrigated with Ancef in saline solution, which had been used to soak the mesh prior to its placement. The wound was closed approximating the skin of the umbilicus down to the underlying fascia with a 4-0 Vicryl. The subcutaneous tissues approximated with interrupted 4-0 Vicryl and the skin was closed with a running 4-0 Vicryl subcuticular stitch. Benzoin and Steri-Strips were applied followed by antibiotic ointment and a sterile dressing. The patient was then awakened and taken from the operating room in satisfactory condition. ESTIMATED BLOOD LOSS: 20 mL. COMPLICATIONS: None. PROGNOSIS: Good. /[id number]/MODL MTDD
[2020-03-30] MEDS ORDERED: Acetaminophen/oxyCODONE 325-5 MG Tab PO PRN (15:25)
[2020-03-30] MEDS ORDERED: Ondansetron 4 MG/2 ML SDV IVPUSH SCH (15:30)
[2020-03-30 16:44] VITALS: BP 191/80; PULSE 53
== END 2020-03-30 16:50 | disposition home or self-care (01) ==
LOC: KA.SDS 09:56
PROVIDERS: ATTEND Surgery
DX: K42.9 Umbilical hernia without obstruction or gangrene (principal); J44.9 Chronic obstructive pulmonary disease, unspecified; C91.10 Chronic lymphocytic leukemia of B-cell type not having achieved remission; I25.10 Atherosclerotic heart disease of native coronary artery without angina pectoris; N18.9 Chronic kidney disease, unspecified; I50.9 Heart failure, unspecified; E78.5 Hyperlipidemia, unspecified; I13.10 Hypertensive heart and chronic kidney disease without heart failure, with stage 1 through stage 4 chronic kidney disease, or unspecified chronic kidney disease; Z88.8 Allergy status to other drugs, medicaments and biological substances; Z88.1 Allergy status to other antibiotic agents; Z86.010 Personal history of colon polyps; Z79.51 Long term (current) use of inhaled steroids; Z79.899 Other long term (current) drug therapy
CPT/HCPCS: 00830; A9270-GY; C1781; J0690; J2250; J2405; J2704; J3010; J3490; J7120

== ENCOUNTER 2023-12-29 09:19 | Emergency (ER) | payer MEDICARE, BC ==
[2023-12-29 09:27] VITALS: BP 138/72; PULSE 65
[2023-12-29] MEDS: methylPREDNISolone Acetate 80 MG/ML SDV IM ONE (10:30)
[2023-12-29] MEDS: Lidocaine 1% 5 ML VIAL INJECT ONE (10:30)
== END 2023-12-29 10:45 | disposition home or self-care (01) ==
LOC: KA.ED 09:19
DX: M17.12 Unilateral primary osteoarthritis, left knee (principal); I25.10 Atherosclerotic heart disease of native coronary artery without angina pectoris; E78.00 Pure hypercholesterolemia, unspecified; J44.9 Chronic obstructive pulmonary disease, unspecified; I12.9 Hypertensive chronic kidney disease with stage 1 through stage 4 chronic kidney disease, or unspecified chronic kidney disease; N18.30 Chronic kidney disease, stage 3 unspecified; Z88.6 Allergy status to analgesic agent; Z88.1 Allergy status to other antibiotic agents; Z88.8 Allergy status to other drugs, medicaments and biological substances; Z79.899 Other long term (current) drug therapy; Z79.82 Long term (current) use of aspirin; Z95.5 Presence of coronary angioplasty implant and graft; Z86.19 Personal history of other infectious and parasitic diseases
CPT/HCPCS: 20610; 73562; 73565; 96372; 99283; J1040; J3490